=== PATIENT | female | born 1960 | race American Indian/Alaskan Native ===

== ENCOUNTER 2016-12-12 17:41 | Emergency (ER) | payer SELFPAY ==
--- NOTE | 2016-12-12 18:50 | Emergency Department Report ---
HPI - General Chief Complaint: Chest Pain Time Seen by Provider: 12/12/16 18:24 - HPI HPI: Is a 56-year-old Afro-[place] female presents to the emergency department, dropped off by a friend, with multiple complaints. Patient says that starting yesterday she began having severe chest pain with shortness of breath. It worsened with laying flat. It went away on its own but came back last night and felt like a "boot in the chest." At this point her fingers went numb and also contracted into her palm. The pain continued in the chest through this morning but has since improved. She complains of a posterior headache with some radiation down towards the back. She also complains of a pain in the left lower quadrant of the abdomen and mostly happens when she is coughing. Her cough is a mixed dry and productive cough. She is a tobacco smoker. She denies any past medical history. She does not have a primary care doctor. She has not taken anything for her symptoms prior to presentation. ED Past Medical Hx - Past Medical History Previous Medical History?: No - Surgical History Past Surgical History?: Yes Additional Surgical History: tubal ligation, Hysterectomy - Social History Smoking Status: Current Every Day Smoker Substance Use Type: Alcohol - Medications Home Medications: Home Medications Medication Instructions Recorded Confirmed Last Taken Type Dm/PE/Acetaminophen/Doxylamine 1 cap PO QDAY 12/12/16 12/12/16 12/10/16 History [[place] Plus Day-Night Cp] Naproxen Sodium [Aleve TAB] 220 mg PO QDAY PRN 12/12/16 12/12/16 12/11/16 History traMADol [Ultram] 50 mg PO Q6HR PRN #8 tablet 12/12/16 Unknown Rx ED Review of Systems ROS: Stated complaint: CHEST PAIN Other details as noted in HPI Comment: All other systems reviewed and negative Constitutional: denies: chills, fever Eyes: denies: eye pain, eye discharge, vision change ENT: denies: ear pain, throat pain Respiratory: denies: cough, wheezing Cardiovascular: chest pain. denies: palpitations Gastrointestinal: abdominal pain. denies: vomiting Genitourinary: denies: urgency, dysuria, discharge Musculoskeletal: denies: back pain, joint swelling, arthralgia Skin: denies: rash, lesions Neurological: headache. denies: weakness Physical Exam - Physical Exam Vital Signs: Vital Signs 12/12/16 17:55 Temperature 98.1 F Pulse Rate 80 Respiratory 22 Rate Blood Pressure 132/90 O2 Sat by Pulse 97 Oximetry Physical Exam: GENERAL: The patient is well-developed well-nourished. HEENT: Normocephalic. Atraumatic. Extraocular motions are intact. Patient has moist mucous membranes. Pupils equal reactive to light bilaterally. NECK: Supple. Trachea is midline. CHEST/LUNGS: Clear to auscultation. There is no respiratory distress noted. HEART/CARDIOVASCULAR: Regular. There is no tachycardia. There is no gallop rub or murmur. ABDOMEN: Abdomen is soft. There is mild left lower quadrant tenderness to palpation. The patient has pain there with coughing or intra-abdominal pressure. No guarding rebound tenderness. Patient has normal bowel sounds. There is no abdominal distention. SKIN: Skin is warm and dry. NEURO: The patient is awake, alert, and oriented. The patient is cooperative. The patient has no focal neurologic deficits. The patient has normal speech. Cranial nerves II through XII grossly intact. MUSCULOSKELETAL: There is no tenderness or deformity. There is no limitation range of motion. There is no evidence of acute injury. ED Course Vital Signs 12/12/16 17:55 Temperature 98.1 F Pulse Rate 80 Respiratory 22 Rate Blood Pressure 132/90 O2 Sat by Pulse 97 Oximetry ED Medical Decision Making - Lab Data Result diagrams: 12/12/16 18:25 12/12/16 18:25 - EKG Data -: EKG Interpreted by Me EKG shows normal: sinus rhythm, axis, intervals, QRS complexes (Q waves to the septal leads), ST-T waves Rate: normal - EKG Data When compared to previous EKG there are: previous EKG unavailable Interpretation: other (Q waves to the septal leads) - Radiology Data Radiology results: report reviewed, image reviewed interpreted by me: Chest x-ray did not show any acute process. Heart is normal shape and size. No effusions. No pneumothorax. No signs of pneumonia seen. Abdominal x-ray shows nonspecific nonobstructive bowel gas. CT of the head does not show any acute process including no hemorrhage, mass, shift, diffuse edema or skull fracture. - Medical Decision Making 56-year-old female presents the emergency department with a couple different complaints. She has a posterior headache that she describes as a pulling sensation going down the neck and shoulders and appears consistent with a tension headache. However the patient had a CT of the head without contrast that did not show any bleed, shift, mass or any acute process. The patient complained of some intermittent chest pains but does not appear to have any of the chest pain by the time I'm seeing her in the emergency department. Her EKG shows Q waves in septal leads but there is no sign of ST elevation AK, ischemia or dysrhythmia that is acute. Chest x-ray does not show any acute process. Her labs are unremarkable including negative troponins 2 and a negative d- dimer. She has some lower quadrant left-sided mild tenderness to palpation but she also has pain there with coughing or intra-abdominal pressure. There is no palpable hernia. She has normal bowel sounds. Abdominal x-ray does not show any acute process. The patient was reevaluated multiple times for multiple hours and says she is feeling improved. She has no further chest discomfort. Her headache is always completely resolved, she still has some occasional abdominal pain that worsens with coughing. I offered a CT of the abdomen and pelvis to get a better look into her abdominal discomfort but the patient says she is feeling improved and does not want to wait any further in the emergency department. She will go home, follow up with a primary care doctor and return to the emergency department with any worsening of her symptoms. Vital signs stable throughout ED course. - Differential Diagnosis AK, PE, tension headache, migraine, colitis, diverticulitis Critical Care Time: No Critical care attestation.: If time is entered above; I have spent that time in minutes in the direct care of this critically ill patient, excluding procedure time. ED Disposition Clinical Impression: Headache Qualifiers: Headache type: tension-type Headache chronicity pattern: acute headache Intractability: not intractable Qualified Code(s): G44.209 - Tension-type headache, unspecified, not intractable Abdominal pain Qualifiers: Abdominal location: left lower quadrant Qualified Code(s): R10.32 - Left lower quadrant pain Chest pain Qualifiers: Chest pain type: unspecified Qualified Code(s): R07.9 - Chest pain, unspecified Disposition: - TO HOME OR SELFCARE Is pt being admited?: No Condition: Stable Instructions: Chest Pain (ED), Acute Headache (ED), Abdominal Pain (ED) Additional Instructions: Please follow-up with a primary care physician in the next few days. I've given your referral for a local ground crew supervisor, Dr. Lemons, follow-up regarding your previous chest pain and so you can have an outpatient stress test. Return to the emergency department with any return of her chest pain, worsening of her symptoms, or any acute distress. Prescriptions: traMADol [Ultram] 50 mg PO Q6HR PRN #8 tablet PRN Reason: Pain Referrals: ALEKSANDR BENEDICT MD [Staff Physician] - 3-5 Days ROD LEMONS MD [Staff Physician] - 3-5 Days [facility] [Outside] - 3-5 Days Time of Disposition: 22:55
[2016-12-12 18:54] LABS: Hematocrit 39.9 % (30.3-42.9); Hemoglobin 13.3 gm/dl (10.1-14.3); Mean Corpuscular HGB Conc 33 % (30-34); Mean Corpuscular Hemoglobin 27 pg (28-32); Mean Corpuscular Volume 82 fl (79-97); Platelet Count 199 K/mm3 (140-440); Red Blood Count 4.88 M/mm3 (3.65-5.03); Red Cell Distribution Width 13.4 % (13.2-15.2); White Blood Count 3.2 K/mm3 (4.5-11.0)
[2016-12-12 19:23] LABS: Anion Gap 20 mmol/L; BUN/Creatinine Ratio 15.71; Blood Urea Nitrogen 11 mg/dL (7-17); Calcium 10.1 mg/dL (8.4-10.2); Carbon Dioxide 24 mmol/L (22-30); Chloride 103.9 mmol/L (98-107); Glucose 100 mg/dL (65-100); Potassium 4.1 mmol/L (3.6-5.0); Sodium 144 mmol/L (137-145)
[2016-12-12 19:32] LABS: Alanine Aminotransferase 17 units/L (7-56); Albumin 3.9 g/dL (3.9-5); Albumin/Globulin Ratio 1.1 %; Alkaline Phosphatase 118 units/L (35-129); Lipase 50 units/L (13-60); Total Protein 7.6 g/dL (6.3-8.2)
[2016-12-12 19:45] LABS: Bilirubin,Direct < 0.2 mg/dL (0-0.2); Bilirubin,Indirect 0.1 mg/dL
[2016-12-12 19:49] LABS: Blastocytes % (Manual) 0 %; Ovalocytes Few; Polychromasia Few
[2016-12-12 19:50] LABS: Diff Status Complete; Platelet Estimate Consistent w Auto
--- NOTE | 2016-12-12 19:53 | Admit Criteria Form ---
Admission Criteria Documentation: CARDIOLOGY GRG Clinical Indications for Admission to Inpatient Care ( Place 'X' for any and all applicable criteria): Hospital admission is needed for appropriate care of the patient because of ANY ONE of the following (1): [ ] I. Hemodynamic instability as indicated by ALL of the following (1)(2)(3) (4)(5) [ ]a) Vital signs or other findings not as expected for chronic patient condition or baseline [ ]b) Instability indicated by ANY ONE of the following: [ ]i) Hypotension [ ]ii) Symptomatic Tachycardia unresponsive to treatment ( e.g., analgesia, fluids, sedation as indicated) [ ]iii) Inadequate perfusion indicated by ANY ONE of the following: [ ] 1) Lactic acidosis (> 2 mmol/L) [ ] 2) New abnormal capillary refill (> 3 seconds) [ ] 3) Reduced urine output [ ] 4) New altered mental status [ ]iv) Orthostatic vital sign changes unresponsive to treatment (e.g., fluids) [ ]v) IV inotropic or vasopressor medication required to maintain adequate blood pressure or perfusion [ ] II. Severe heart failure as indicated by ANY ONE of the following(17)(18) [ ]a) Respiratory distress [ ]b) Hypotension [ ]c) Anasarca (refractory to outpatient therapy) [ ]d) Cardiac arrhythmias of immediate concern [ ]e) Myocardial ischemia [ ] III. Cardiac arrhythmias or findings of immediate concern indicated by ANY ONE of the following (19)(20): [ ] a) Heart rhythms that are inherently dangerous or unstable indicated by ANY ONE of the following (21)(22)(23): [ ] i) Resuscitated ventricular fibrillation or cardiac arrest [ ] ii) Ventricular escape rhythm [ ] iii) Sustained ventricular tachycardia (30 seconds or more of ventricular rhythm at greater than 100 beats per minute) [ ] iv) Nonsustained ventricular tachycardia and ANY ONE of the following: [ ] 1) Suspected cardiac ischemia as cause or consequence of ventricular tachycardia [ ] 2) In setting of acute myocarditis [ ] b) Unstable cardiac conduction defects indicated by ANY ONE of the following(23)(24)(25) [ ] i) Type II second-degree atrioventricular block [ ]ii) Third-degree atrioventricular block [ ]iii) New-onset left bundle branch block with suspected myocardial ischemia [ ]c) Any heart rhythm and ANY ONE of the following (21)(22)(26)(27) (28) [ ] i) Continuous long-term ECG monitoring needed (e.g., initiation of drug requiring monitoring for more than 24 hours) [ ] ii) Patient has automatic implanted cardioverter defibrillator that is repeatedly firing, malfunctioning, or in need of immediate adjustment of settings beyond the scope of ambulatory or observation care [ ]d) Heart rhythms of concern due to ANY ONE of the following: [ ] i) Hypotension [ ] ii) Respiratory distress [ ] iii) Association with other significant symptoms (e.g., bradycardia with syncope or ongoing dizziness, supraventricular tachycardia with chest pain (14)(15)(17) [ ] IV. Monitoring for cardiac contusion beyond the scope of observation care needed [A](30)(31)(32) [ ] V. Surgical or device complication (e.g., valve replacement complication , pacemaker dysfunction) (35)(41)(44)(45)(46) [ ] . Inpatient palliative care needed. [B](49) Also use Inpatient Palliative Care Criteria [ ] VII. Nonbacterial thrombotic (marantic) endocarditis (36)(43)(47)(48) [x] VIII. Cardiology condition, symptom, or finding for which emergency and observation care has failed or are not considered appropriate. [ ] IX. Acute valvular disease requiring inpatient as indicated by ANY ONE of the following (41) [ ]a) Acute valvular regurgitation (42) [ ]b) Noninfectious valvulitis (43) [ ]c) Obstructive valve thrombosis [ ]d) Paravalvular leak [ ]e) Other significant valvular disorder remaining after emergency or observation level of care (as appropriate) [ ]X. Pericardial disease requiring inpatient treatment as indicated by ANY ONE of the following (33)(34)(35)(36)(37) [ ]a) Suspected tamponade (38)(39)(40) [ ]b) Hemopericardium [ ]c) Other significant pericardial disorder remaining after emergency or observation level of care (as appropriate) [ ] XI. Cardiac ischemia beyond scope of emergency and observation care. [ ] XII. Hypertension requiring inpatient treatment as indicated by ANY ONE of the following (6)(7)(8) [ ]a) SBP greater than 220 mm Hg or DBP greater than 120 mmHg despite treatment [ ]b) SBP greater than 140 mm Hg or DBP greater than 100 mm Hg with evidence of acute end organ damage as indicated by ANY ONE of the following [ ] i) Altered mental status [ ] ii) Acute renal failure as indicated by new onset of ANY ONE of the following (9)(10)(11)(12)(13) [ ]1) 3-fold rise in serum creatinine from baseline [ ]2) Serum creatinine greater than 4 mg/dL ( 354 micromoles/L) with acute rise greater than 0.5 mg/dL (44.2 micromoles/L) [ ]3) Reduction of more than 75% in estimated glomerular filtration rate from baseline [ ]4) Estimated glomerular filtration rate less than 35 mL/min/1.73m2 (0.59 mL/sec/1.73m2) in child up to 18 years of age [ ]5) Cessation of urine output indicated by ALL of the following [ ]A. Adequate volume status [ ]B. Inadequate urine output as indicated by ANY ONE of the following [ ]a. Urine output less than 0.3 mL/kg/hr for 24 hours [ ]b. Anuria (urine output less than 0.1 mL/kg/hr) for 12 hours [ ] iii) Aortic dissection [ ] iv) Myocardial Ischemia [ ] v) Left ventricular heart failure [ ]vi) Retinal Hemorrhage [ ]vii) Other significant finding [ ]c) Hypertension in child requiring inpatient treatment as indicated by ALL of the following(14)(15)(16) [ ] i) Outpatient treatment not effective, not available, or not appropriate [ ]ii) SBP or DBP greater than 95th percentile for age [ ]iii) Evidence of acute end organ damage as indicated by ANY ONE of the following [ ]1) Altered mental status [ ]2) Acute renal failure as indicated by new onset of ANY ONE of the following(9)(10)(11)(12)(13) [ ]A. 3-fold rise in serum creatinine from baseline [ ]B. Serum creatinine greater than 4 mg/dL (354 micromoles/L) with acute rise greater than 0.5 mg/dL (44.2 micromoles/L) [ ]C. Reduction of more than 75% in estimated glomerular filtration rate from baseline [ ]D. Estimated glomerular filtration rate less than 35 mL/min/1.73m2 (0.59 mL/sec/1.73m2) in child up to 18 years of age [ ]E. Cessation of urine output indicated by ALL of the following [ ]a. Adequate volume status [ ]b. Inadequate urine output as indicated by ANY ONE of the following [ ]i) Urine output less than 0.3 mL/kg/hr for 24 hours [ ]ii) Anuria ( urine output less than 0.1 mL/kg/hr) for 12 hours [ ]3) Severe headache [ ]4) Visual disturbance [ ]5) Retinal hemorrhage [ ]6) Other significant finding [ ]XIII. Complications of transplanted heart indicated by ANY ONE of the following(61): [ ]a) Acute graft rejection requiring inpatient management (eg, intravenous immunosuppression)(62)(63) [ ]b) Acute graft heart failure indicated by ANY ONE of the following(64): [ ]i) Hemodynamic instability [ ]ii) Cardiac arrhythmias of immediate concern [ ]iii) Pulmonary edema that is very severe (eg, mechanical ventilation needed, imminent or likely, need for 100% oxygen to keep oxygen saturation above 90%) [ ]iv) Pulmonary edema that is persistent as indicated by ALL of the following: [ ]1) New need for oxygen therapy to keep oxygen saturation above 90% (or increased FiO2 need from baseline) [ ]2) Has not improved sufficiently with emergency department or observation care IV diuretics or other heart failure treatments[E] [ ]v) Altered mental status that is severe or persistent [ ]vi) Increased creatinine (new on laboratory test) with reduction of more than 50% in estimated glomerular filtration rate from baseline [ ]vii) Progressively (ongoing) rising creatinine (known from past laboratory test) with reduction of more than 25% in estimated glomerular filtration rate from baseline [ ]viii) Acute renal failure [ ]ix) Acute peripheral ischemia (eg, examination shows pulseless, cool, mottled, or cyanotic extremity) [ ]x) Pulmonary artery catheter monitoring needed [ ]xi) Other sign or symptom of heart failure requiring inpatient treatment (ie, too severe or not responsive to outpatient and observation care treatment) [ ]c) Infection requiring inpatient management (eg, Hemodynamic instability, need for intravenous antimicrobial treatment)(66)(67)(68)(69)(70) [ ]d) Cardiac allograft vasculopathy requiring inpatient management ( eg evidence of cardiac ischemia)(71) [ ]e) Other complication of transplanted heart (eg, stroke, severe pulmonary hypertension, severe valvular dysfunction) requiring inpatient management(72) The original [facility] [employer] content created by [facility] [employer] has been revised. The portions of the content which have been revised are identified through the use of italic text or in bold, and [facility] has neither reviewed nor approved the modified material. All other unmodified content is copyright [facility] [employer]. Please see references footnoted in the original [facility] [employer] edition 2016
--- NOTE | 2016-12-12 21:42 | Cat Scan Report ---
FINAL REPORT EXAM: CT HEAD/BRAIN WO CON HISTORY: Headache TECHNIQUE: CT head without contrast PRIORS: None. FINDINGS: No acute intra-axial or extra-axial hemorrhage is identified. There is no evidence of midline shift or mass effect. The ventricles and sulci are within normal limits. Sifuentes-white matter differentiation is intact. No acute parenchymal abnormalities seen. Bony calvarium is grossly intact. There is fluid level present within the right maxillary sinus. There is increased density seen within multiple ethmoid air cells. IMPRESSION: Sinusitis which appears acute No acute intracranial findings
[2016-12-12 23:24] VITALS: BP 143/82
--- NOTE | 2016-12-13 08:19 | XRay Report ---
ABDOMEN TWO VIEWS: 12/12/16 18:41:00 CLINICAL: Abdominal pain. COMPARISON:None. FINDINGS: Supine upright views demonstrate a normal bowel gas pattern. Moderate stool throughout the colon. No distended bowel and no air-fluid levels. The right upper quadrant calcification overlies the kidney and may be a renal calculus or gallbladder. The bones and soft tissues are normal. IMPRESSION: Right upper quadrant calcification and possible urinary or gallbladder calculus.
--- NOTE | 2016-12-13 08:21 | XRay Report ---
CHEST TWO VIEWS: 12/12/16 17:41:00 CLINICAL: Chest pain and shortness of breath. COMPARISON: none FINDINGS: Normal heart and pulmonary vasculature. The lungs are normally expanded and clear. The bones and soft tissues are normal. IMPRESSION: Normal chest.
== END 2016-12-12 23:15 | disposition home or self-care (01) ==
LOC: ED 17:41
DX: R51 Headache (principal); R07.9 Chest pain, unspecified; R10.32 Left lower quadrant pain; F17.210 Nicotine dependence, cigarettes, uncomplicated; Z98.51 Tubal ligation status; Z90.49 Acquired absence of other specified parts of digestive tract
CPT/HCPCS: 36415; 70450; 71020; 74020; 80048; 80074; 83690; 84484; 85007; 85025; 85379; 93005; 93010; 99285

== ENCOUNTER 2017-02-25 10:12 | Emergency (ER) | payer SELFPAY ==
[2017-02-25 10:51] VITALS: BP 142/93
--- NOTE | 2017-02-25 10:52 | Emergency Department Report ---
ED Extremity Problem HPI - General Chief complaint: Skin Rash Stated complaint: LT LEG PAIN/RASH/ Time Seen by Provider: 02/25/17 10:47 Source: patient Mode of arrival: Ambulatory Limitations: No Limitations - History of Present Illness Initial comments: PT states she noticed a rash to her L taylor yesterday. PT states it feel like her leg is burning. PT states she had chickenpox as a child. MD Complaint: extremity pain Onset/Timin -: Gradual, days(s) Location: left, lower extremity History of Same: No Severity scale (0 -10): 10 Quality: burning Consistency: constant Improves with: nothing Worsens with: nothing Associated Symptoms: rash. denies: fever - Related Data Home Medications Medication Instructions Recorded Confirmed Last Taken Dm/PE/Acetaminophen/Doxylamine 1 cap PO QDAY 12/12/16 12/12/16 12/10/16 [[place] Plus Day-Night Cp] Naproxen Sodium [Aleve TAB] 220 mg PO QDAY PRN 12/12/16 12/12/16 12/11/16 Previous Rx's Medication Instructions Recorded Last Taken Type Acyclovir [Zovirax Cap] 800 mg PO 5XD 7 Days 02/25/17 Unknown Rx HYDROcodone/APAP 5-325 [[place] 1 each PO Q6HR PRN #14 tablet 02/25/17 Unknown Rx 5/325] Ibuprofen [Motrin] 600 mg PO Q8H PRN #15 tablet 02/25/17 Unknown Rx Allergies Allergy/AdvReac Type Severity Reaction Status Date / Time No Known Allergies Allergy Verified 06/07/14 09:51 ED Review of Systems ROS: Stated complaint: LT LEG PAIN/RASH/ Other details as noted in HPI Comment: All other systems reviewed and negative Constitutional: chills, fever (subjective ) Cardiovascular: denies: chest pain Gastrointestinal: denies: abdominal pain Musculoskeletal: back pain (left lower back ) Skin: rash, change in color Neurological: denies: headache, weakness ED Past Medical Hx - Surgical History Past Surgical History?: Yes Additional Surgical History: tubal ligation, Hysterectomy - Social History Smoking Status: Current Every Day Smoker Substance Use Type: Alcohol - Medications Home Medications: Home Medications Medication Instructions Recorded Confirmed Last Taken Type Dm/PE/Acetaminophen/Doxylamine 1 cap PO QDAY 12/12/16 12/12/16 12/10/16 History [[place] Plus Day-Night Cp] Naproxen Sodium [Aleve TAB] 220 mg PO QDAY PRN 12/12/16 12/12/16 12/11/16 History Acyclovir [Zovirax Cap] 800 mg PO 5XD 7 Days 02/25/17 Unknown Rx HYDROcodone/APAP 5-325 [[place] 1 each PO Q6HR PRN #14 tablet 02/25/17 Unknown Rx 5/325] Ibuprofen [Motrin] 600 mg PO Q8H PRN #15 tablet 02/25/17 Unknown Rx ED Physical Exam - General Limitations: No Limitations General appearance: alert, in no apparent distress - Head Head exam: Present: atraumatic, normocephalic, normal inspection - Eye Eye exam: Present: normal appearance, PERRL. Absent: conjunctival injection - ENT ENT exam: Present: normal exam, mucous membranes moist, normal external ear exam - Neck Neck exam: Present: normal inspection, full ROM. Absent: lymphadenopathy - Respiratory Respiratory exam: Present: normal lung sounds bilaterally. Absent: respiratory distress, wheezes, chest wall tenderness - Cardiovascular Cardiovascular Exam: Present: regular rate, normal rhythm, normal heart sounds - GI/Abdominal GI/Abdominal exam: Present: soft, other (no rash ). Absent: tenderness - Extremities Exam Extremities exam: Present: full ROM. Absent: normal inspection (vesicular rash to LLE ) - Back Exam Back exam: Present: normal inspection, full ROM. Absent: tenderness, CVA tenderness (R), CVA tenderness (L), muscle spasm, paraspinal tenderness, vertebral tenderness, rash noted - Neurological Exam Neurological exam: Present: alert, oriented X3, normal gait - Psychiatric Psychiatric exam: Present: normal affect, normal mood - Skin Skin exam: Present: warm, dry, intact, rash, vesicles ED Course Vital Signs 02/25/17 10:44 Temperature 98.1 F Pulse Rate 65 Respiratory 16 Rate Blood Pressure 142/93 O2 Sat by Pulse 97 Oximetry - Reevaluation(s) Reevaluation #1: 02/25/17 10:54 PT aware of dx and plan of care. PT aware that she is contagious. PT has no questions at this time. - Pulse Oximetry Interpretation Digit-Finger Initial Pulse Oximetry Readin Actions Taken: none ED Medical Decision Making - Differential Diagnosis shingles Critical Care Time: No Critical care attestation.: If time is entered above; I have spent that time in minutes in the direct care of this critically ill patient, excluding procedure time. ED Disposition Clinical Impression: Shingles Qualifiers: Herpes zoster complications: without complications Qualified Code(s): B02.9 - Zoster without complications Disposition: TO HOME OR SELFCARE Is pt being admited?: No Does the pt Need Aspirin: No Condition: Stable Instructions: Herpes Zoster (ED) Additional Instructions: Follow up with PCP in 3-5 days - Have your bp rechecked at follow up No driving or alcohol after taking [place] for your pain Avoid babies under 1 year old, people who have not had chicken pox or the vaccination or those who are sick Prescriptions: Acyclovir [Zovirax Cap] 800 mg PO 5XD 7 Days HYDROcodone/APAP 5-325 [[place] 5/325] 1 each PO Q6HR PRN #14 tablet PRN Reason: Pain Ibuprofen [Motrin] 600 mg PO Q8H PRN #15 tablet PRN Reason: Pain Referrals: RAY PELLETIER MD [Staff Physician] - 3-5 Days [facility] [Outside] - 3-5 Days Time of Disposition: 10:56
== END 2017-02-25 11:23 | disposition home or self-care (01) ==
LOC: ED 10:12
DX: B02.9 Zoster without complications (principal); F17.200 Nicotine dependence, unspecified, uncomplicated
CPT/HCPCS: 99282

== ENCOUNTER 2017-09-07 09:51 | Emergency (ER) | payer SELFPAY ==
[2017-09-07] MEDS ORDERED: ASPIRIN PO ONE (10:04)
[2017-09-07 10:23] LABS: Basophils % (Auto) 0.6 % (0.0-1.8); Eosinophils # (Auto) 0.3 K/mm3 (0.0-0.4); Hematocrit 41.1 % (30.3-42.9); Hemoglobin 13.4 gm/dl (10.1-14.3); Lymphocytes # (Auto) 1.5 K/mm3 (1.2-5.4); Lymphocytes % (Auto) 36.2 % (13.4-35.0); Mean Corpuscular HGB Conc 33 % (30-34); Mean Corpuscular Hemoglobin 27 pg (28-32); Mean Corpuscular Volume 82 fl (79-97); Monocytes # (Auto) 0.4 K/mm3 (0.0-0.8); Monocytes % (Auto) 8.8 % (0.0-7.3); Platelet Count 205 K/mm3 (140-440); Red Blood Count 5.04 M/mm3 (3.65-5.03); Red Cell Distribution Width 13.1 % (13.2-15.2)
[2017-09-07 11:32] LABS: BUN/Creatinine Ratio 20; Blood Urea Nitrogen 12 mg/dL (7-17); Calcium 10.1 mg/dL (8.4-10.2); Hemolysis Index 4
--- NOTE | 2017-09-07 12:28 | Emergency Department Report ---
Chief Complaint: Chest Pain Stated Complaint: CHEST PAIN - HPI History of Present Illness: 57-year-old female presents with chest pain neck pain for several days. She has had 2 weeks of shortness of breath. History of tobacco abuse. Mother has history of CHF. Cardiac evaluation ordered. - Exam Vital Signs: Vital Signs 09/07/17 09:58 Temperature 97.6 F Pulse Rate 78 Respiratory 20 Rate Blood Pressure 158/97 O2 Sat by Pulse 97 Oximetry MSE screening note: Focused history and physical exam performed. Due to findings the following was ordered: ED Medical Decision Making - Lab Data Result diagrams: 09/07/17 10:11 09/07/17 10:11 ED Disposition for MSE Condition: Stable Referrals: PRIMARY CARE, [Primary Care Provider] - 3-5 Days
[2017-09-07] MEDS ORDERED: ASPIRIN ONE (12:35)
[2017-09-07] MEDS ORDERED: ATROVENT IH ONE (14:18)
[2017-09-07] MEDS ORDERED: PROVENTIL IH ONE ×2 (14:18→17:08)
--- NOTE | 2017-09-07 16:52 | XRay Report ---
FINAL REPORT PROCEDURE: Chest. TECHNIQUE: PA and lateral views. HISTORY: Chest pain with dyspnea. COMPARISON: No prior studies are available for comparison. FINDINGS: Heart and mediastinum appear normal. The lungs are clear and well expanded. There are no pleural effusions. The soft tissues are unremarkable. There is a moderate thoracolumbar scoliosis. IMPRESSION: No evidence of acute disease.
--- NOTE | 2017-09-07 17:28 | Emergency Department Report ---
ED Chest Pain HPI - General Chief Complaint: Chest Pain Stated Complaint: CHEST PAIN Time Seen by Provider: 09/07/17 14:08 Source: patient Mode of arrival: Ambulatory Limitations: No Limitations - History of Present Illness Initial Comments: Patient is a 57-year-old female who is presenting with chest pressure is been going on off and on for approximately 2 weeks. Patient states that is worsened over the last 3 days. Patient states that as a heavy pressure sensation and tightness in the chest that she is experiencing. Patient states this happens at rest and with exertion. Patient is complaining of shortness of breath orthopnea as well. Patient also states that she has a cough which is nonproductive. This is been present for approximately 2 weeks as well. Patient denies any fevers chills nausea vomiting diarrhea at this time. Patient does have a history of hypertension and possible hyper cholesterolemia. Patient is a smoker but has not smoked in the last 2 days. - Related Data Home Medications Medication Instructions Recorded Confirmed Last Taken Dm/PE/Acetaminophen/Doxylamine 1 cap PO QDAY 12/12/16 12/12/16 12/10/16 [[place] Plus Day-Night Cp] Naproxen Sodium [Aleve TAB] 220 mg PO QDAY PRN 12/12/16 12/12/16 12/11/16 Previous Rx's Medication Instructions Recorded Last Taken Type Acyclovir [Zovirax Cap] 800 mg PO 5XD 7 Days cap 02/25/17 Unknown Rx HYDROcodone/APAP 5-325 [[place] 1 each PO Q6HR PRN #14 tablet 02/25/17 Unknown Rx 5/325] Ibuprofen [Motrin] 600 mg PO Q8H PRN #15 tablet 02/25/17 Unknown Rx ALBUTEROL Inhaler [ProAir HFA 2 puff IH Q4HR PRN #1 inhalation 09/07/17 Unknown Rx Inhaler] Amoxicillin 500 mg PO QID #28 capsule 09/07/17 Unknown Rx predniSONE [Deltasone] 20 mg PO QDAY #5 tab 09/07/17 Unknown Rx Allergies Allergy/AdvReac Type Severity Reaction Status Date / Time No Known Allergies Allergy Verified 06/07/14 09:51 Heart Score - HEART Score History: Slightly suspicious EKG: Normal Age: 45-65 Risk factors: 1-2 risk factors Troponin: < normal limit HEART Score: 2 ED Review of Systems ROS: Stated complaint: CHEST PAIN Other details as noted in HPI Comment: All other systems reviewed and negative ED Past Medical Hx - Past Medical History Hx Arthritis: Yes - Surgical History Additional Surgical History: tubal ligation, Hysterectomy - Social History Smoking Status: Current Every Day Smoker - Medications Home Medications: Home Medications Medication Instructions Recorded Confirmed Last Taken Type Dm/PE/Acetaminophen/Doxylamine 1 cap PO QDAY 12/12/16 12/12/16 12/10/16 History [[place] Plus Day-Night Cp] Naproxen Sodium [Aleve TAB] 220 mg PO QDAY PRN 12/12/16 12/12/16 12/11/16 History Acyclovir [Zovirax Cap] 800 mg PO 5XD 7 Days cap 02/25/17 Unknown Rx HYDROcodone/APAP 5-325 [[place] 1 each PO Q6HR PRN #14 tablet 02/25/17 Unknown Rx 5/325] Ibuprofen [Motrin] 600 mg PO Q8H PRN #15 tablet 02/25/17 Unknown Rx ALBUTEROL Inhaler [ProAir HFA 2 puff IH Q4HR PRN #1 inhalation 09/07/17 Unknown Rx Inhaler] Amoxicillin 500 mg PO QID #28 capsule 09/07/17 Unknown Rx predniSONE [Deltasone] 20 mg PO QDAY #5 tab 09/07/17 Unknown Rx ED Physical Exam - General Limitations: No Limitations General appearance: alert, in no apparent distress - Head Head exam: Present: atraumatic, normocephalic - Eye Eye exam: Present: normal appearance - ENT ENT exam: Present: mucous membranes moist - Neck Neck exam: Present: normal inspection - Respiratory Respiratory exam: Present: wheezes. Absent: respiratory distress, rales, rhonchi, stridor - Cardiovascular Cardiovascular Exam: Present: regular rate, normal rhythm. Absent: systolic murmur, diastolic murmur, rubs, gallop - GI/Abdominal GI/Abdominal exam: Present: soft, normal bowel sounds. Absent: distended, tenderness, guarding, rebound - Extremities Exam Extremities exam: Present: normal inspection - Back Exam Back exam: Present: normal inspection - Neurological Exam Neurological exam: Present: alert, oriented X3 - Psychiatric Psychiatric exam: Present: normal affect, normal mood - Skin Skin exam: Present: warm, dry, intact, normal color. Absent: rash ED Course Vital Signs 09/07/17 09/07/17 09/07/17 09:58 14:06 14:42 Temperature 97.6 F Pulse Rate 78 79 Pulse Rate [ 62 Anterior Throughout] Respiratory 20 19 Rate Respiratory 23 Rate [Anterior Throughout] Blood Pressure 158/97 O2 Sat by Pulse 97 Oximetry 09/07/17 17:55 Temperature Pulse Rate Pulse Rate [ 69 Anterior Throughout] Respiratory Rate Respiratory 15 Rate [Anterior Throughout] Blood Pressure O2 Sat by Pulse Oximetry - Reevaluation(s) Reevaluation #1: 09/07/17 18:40 After the patient's second breathing treatment patient is feeling better. Patient is 100% on room air. Patient is Dr. Johnson since. The patient does still have some mild rhonchi and a wheeze that does clear after coughing. The patient still has significant mucus plugging however she is stable. Patient would like to go home at this time. The patient will be started on albuterol prednisone and amoxicillin be discharged home. ED Medical Decision Making - Lab Data Result diagrams: 09/07/17 10:11 09/07/17 10:11 - EKG Data -: EKG Interpreted by Me - EKG Data Interpretation: other (EKG shows a sinus rhythm rate of 65 normal axis normal intervals and no ST segment elevations or depressions time of interpretation is 1010. Repeat EKG at 1420 shows no interval change.) - Radiology Data Radiology results: report reviewed No acute process - Medical Decision Making Patient is a 57-year-old black female presenting with cough, congestion and chest pressure. Patient does have significant wheezing diffusely. Patient was given a 10 mg of albuterol and 1 mg Atrovent breathing treatment on arrival. Patient still wheezing after this treatment therefore she was given another 5 mg of albuterol. Critical Care Time: Yes Critical care time in (mins) excluding proc time.: 30 Critical care attestation.: If time is entered above; I have spent that time in minutes in the direct care of this critically ill patient, excluding procedure time. ED Disposition Clinical Impression: Bronchospasm Acute bronchitis Qualifiers: Bronchitis organism: unspecified organism Qualified Code(s): J20.9 - Acute bronchitis, unspecified Disposition: DC-01 TO HOME OR SELFCARE Is pt being admited?: No Does the pt Need Aspirin: No Condition: Fair Instructions: Acute Bronchitis (ED) Prescriptions: ALBUTEROL Inhaler [ProAir HFA Inhaler] 2 puff IH Q4HR PRN #1 inhalation PRN Reason: Shortness Of Breath Amoxicillin 500 mg PO QID #28 capsule predniSONE [Deltasone] 20 mg PO QDAY #5 tab Referrals: BECKIE SIMS MD [Staff Physician] - 3-5 Days Time of Disposition: 18:44
[2017-09-07 18:58] VITALS: BP 151/87
== END 2017-09-07 19:00 | disposition home or self-care (01) ==
LOC: ED 09:51
DX: J20.9 Acute bronchitis, unspecified (principal); F17.200 Nicotine dependence, unspecified, uncomplicated
CPT/HCPCS: 36415; 71046; 80048; 83880; 84484; 85025; 93005; 93010; 94640; 94644; 96374; 99291; J2930

== ENCOUNTER 2018-12-03 06:59 | Emergency (ER) | payer SELFPAY ==
[2018-12-03 07:17] VITALS: BP 144/97
[2018-12-03] MEDS ORDERED: DECADRON IM ONE (08:12)
[2018-12-03] MEDS ORDERED: PEPCID PO ONE (08:12)
--- NOTE | 2018-12-03 08:12 | Emergency Department Report ---
HPI - General Chief Complaint: Allergic Reaction Time Seen by Provider: 12/03/18 08:04 - HPI HPI: Patient is a 58-year-old [place] female who is presenting with lip swelling. Patient states the only thing different with her diet is that she has some tra nsaminases last night. Patient states 30 minutes after eating this her lips began to tingle. Patient woke up this morning with swelling to the upper and lower lip. States she had some generalized itchiness as well throughout the night without rash. Patient denies any difficulty breathing nausea vomiting fevers or chills at this time. ED Past Medical Hx - Past Medical History Previous Medical History?: Yes Hx Arthritis: Yes - Surgical History Past Surgical History?: Yes Additional Surgical History: tubal ligation, Hysterectomy - Social History Smoking Status: Current Every Day Smoker Substance Use Type: Alcohol - Medications Home Medications: Home Medications Medication Instructions Recorded Confirmed Last Taken Type Dm/PE/Acetaminophen/Doxylamine 1 cap PO QDAY 12/12/16 12/12/16 12/10/16 History [[place] Plus Day-Night Cp] Naproxen Sodium [Aleve TAB] 220 mg PO QDAY PRN 12/12/16 12/12/16 12/11/16 History Acyclovir [Zovirax Cap] 800 mg PO 5XD 7 Days cap 02/25/17 Unknown Rx HYDROcodone/APAP 5-325 [[place] 1 each PO Q6HR PRN #14 tablet 02/25/17 Unknown Rx 5/325] Ibuprofen [Motrin] 600 mg PO Q8H PRN #15 tablet 02/25/17 Unknown Rx ALBUTEROL Inhaler (OR & NICU) 2 puff IH Q4HR PRN #1 inhalation 09/07/17 Unknown Rx [ProAir HFA Inhaler] Amoxicillin 500 mg PO QID #28 capsule 09/07/17 Unknown Rx predniSONE [Deltasone] 20 mg PO QDAY #5 tab 09/07/17 Unknown Rx Famotidine [Pepcid] 20 mg PO BID #20 tablet 12/03/18 Unknown Rx diphenhydrAMINE [Benadryl CAP] 25 mg PO Q8HR #10 capsule 12/03/18 Unknown Rx predniSONE [Deltasone] 20 mg PO QDAY #5 tab 12/03/18 Unknown Rx ED Review of Systems ROS: Stated complaint: SWELLING IN LIPS Other details as noted in HPI Physical Exam - Physical Exam Vital Signs: Vital Signs 12/03/18 12/03/18 12/03/18 07:02 07:16 07:19 Temperature 98.0 F 97.8 F 98.6 F Pulse Rate 76 70 73 Respiratory 16 16 16 Rate Blood Pressure 152/94 144/97 Blood Pressure 144/97 [Left] O2 Sat by Pulse 96 100 100 Oximetry General: Patient is alert and oriented 3 in no acute distress Physical Exam: Patient with some edema to the upper and lower lip which is mild. There is no pharyngeal swelling or erythema. Skin exam shows no hives present. Heart lung exam is within normal limits. ED Course Vital Signs 12/03/18 12/03/18 12/03/18 07:02 07:16 07:19 Temperature 98.0 F 97.8 F 98.6 F Pulse Rate 76 70 73 Respiratory 16 16 16 Rate Blood Pressure 152/94 144/97 Blood Pressure 144/97 [Left] O2 Sat by Pulse 96 100 100 Oximetry ED Medical Decision Making - Medical Decision Making Patient states she has had allergic reaction to crab legs before but not examined. Patient likely with seafood allergy that is developing. Patient given a Decadron shot Pepcid because she has driven Benadryl and held. Patient is to take Benadryl 3 times a day for the next several days. Critical care attestation.: If time is entered above; I have spent that time in minutes in the direct care of this critically ill patient, excluding procedure time. ED Disposition Clinical Impression: Acute allergic reaction Qualifiers: Encounter type: initial encounter Qualified Code(s): T78.40XA - Allergy, unspecified, initial encounter Disposition: - TO HOME OR SELFCARE Is pt being admited?: No Does the pt Need Aspirin: No Condition: Stable Instructions: Food Allergy (ED) Referrals: [facility] [Provider Group] - 3-5 Days Time of Disposition: 08:22
== END 2018-12-03 08:33 | disposition home or self-care (01) ==
LOC: ED 06:59
DX: T78.40XA Allergy, unspecified, initial encounter (principal); F17.200 Nicotine dependence, unspecified, uncomplicated; M19.90 Unspecified osteoarthritis, unspecified site; Y92.89 Other specified places as the place of occurrence of the external cause
CPT/HCPCS: 99282

== ENCOUNTER 2020-08-24 20:46 | Inpatient (IN) | payer OTHER ==
--- NOTE | 2020-08-24 21:07 | Emergency Department Report ---
Blank Doc - Documentation Documentation: 60-year-old female that presents with epigastric pain with nausea vomiting. Hypotensive in triage. 1- This initial assessment/diagnostic orders/clinical plan/ treatment(s) is/are subject to change based on pt's health status, clinical progression and re- assessment by fellow clinical providers in the ED. Further treatment and workup at subsequent clinical provers discretion. Patient/guardians urged not to elope from ED as their condition may be serious if not clinically assessed and managed. 2-labs 3-UA 4-EKG
[2020-08-24 21:22] LABS: Basophils % (Auto) 0.4 % (0.0-1.8); Eosinophils # (Auto) 0.1 K/mm3 (0.0-0.4); Eosinophils % (Auto) 1.3 % (0.0-4.3); Hematocrit 41.6 % (30.3-42.9); Hemoglobin 14.4 gm/dl (10.1-14.3); Lymphocytes # (Auto) 1.9 K/mm3 (1.2-5.4); Lymphocytes % (Auto) 27.8 % (13.4-35.0); Mean Corpuscular HGB Conc 35 % (30-34); Mean Corpuscular Volume 80 fl (79-97); Monocytes # (Auto) 0.3 K/mm3 (0.0-0.8); Monocytes % (Auto) 4.9 % (0.0-7.3); Platelet Count 275 K/mm3 (140-440); Red Blood Count 5.18 M/mm3 (3.65-5.03); Red Cell Distribution Width 13.3 % (13.2-15.2)
[2020-08-24] MEDS ORDERED: FAMOTIDINE 20 MG/2 ML INJ IV ONE (21:23)
[2020-08-24] MEDS ORDERED: SODIUM CHLORIDE 0.9% 1000 ML 1,000 ML IV ONE ×2 (21:23→22:53)
--- NOTE | 2020-08-24 21:26 | Emergency Department Report ---
HPI - General Chief Complaint: Abdominal Pain Time Seen by Provider: 08/24/20 21:06 - HPI HPI: This is a 60-year-old -[place] female presents to the emergency department via EMS from home with complaint of severe intermittent epigastric abdominal pain that started about 8 AM this morning. The patient thought it might be gas pains and attempted to treat herself with drinking warm water with some ezio mixed in, 2 different times, without much relief. This evening the patient felt like she needed to have a bowel movement and sat down on the toilet to attempt to "pass my bowels" but she was unsuccessful and the patient says she began feeling very dizzy as if she was going to pass out. Around this time the patient also complained of having a frontal headache. The abdominal pain, when it occurs, is sharp, 10 out of 10 in intensity, and lasts for about 20 seconds at a time. She denies any fever, dysuria, vaginal bleeding or discharge, back pain, chest pain or shortness of breath. She denies any past medical history. She does not follow with a primary care physician. She is a tobacco smoker. No recent travel or sick contacts at home. ED Past Medical Hx - Past Medical History Previous Medical History?: Yes Hx Arthritis: Yes - Surgical History Past Surgical History?: Yes Additional Surgical History: tubal ligation, Hysterectomy - Social History Smoking Status: Current Every Day Smoker Substance Use Type: None - Medications Home Medications: Home Medications Medication Instructions Recorded Confirmed Last Taken Type Dm/PE/Acetaminophen/Doxylamine 1 cap PO QDAY 12/12/16 12/12/16 12/10/16 History [[place] Plus Day-Night Cp] Naproxen Sodium [Aleve TAB] 220 mg PO QDAY PRN 12/12/16 12/12/16 12/11/16 History Acyclovir [Zovirax Cap] 800 mg PO 5XD 7 Days cap 02/25/17 Unknown Rx HYDROcodone/APAP 5-325 [[place] 1 each PO Q6HR PRN #14 tablet 02/25/17 Unknown Rx 5/325] Ibuprofen [Motrin] 600 mg PO Q8H PRN #15 tablet 02/25/17 Unknown Rx Albuterol Mdi (or & Nicu Only) 2 puff IH Q4HR PRN #1 inhalation 03/11/18 Unknown Rx [ProAir HFA Inhaler] Amoxicillin 500 mg PO QID #28 capsule 09/07/17 Unknown Rx predniSONE [Deltasone] 20 mg PO QDAY #5 tab 09/07/17 Unknown Rx Famotidine [Pepcid] 20 mg PO BID #20 tablet 12/03/18 Unknown Rx diphenhydrAMINE [Benadryl CAP] 25 mg PO Q8HR #10 capsule 12/03/18 Unknown Rx predniSONE [Deltasone] 20 mg PO QDAY #5 tab 12/03/18 Unknown Rx ED Review of Systems ROS: Stated complaint: ABDOMINAL PAIN Other details as noted in HPI Comment: All other systems reviewed and negative Constitutional: denies: chills, fever Eyes: denies: eye pain, vision change ENT: denies: ear pain, throat pain Respiratory: denies: cough, shortness of breath Cardiovascular: denies: chest pain, palpitations Gastrointestinal: abdominal pain, nausea, vomiting Genitourinary: denies: dysuria, discharge Musculoskeletal: denies: back pain, arthralgia Skin: denies: rash, lesions Neurological: denies: headache, weakness Physical Exam - Physical Exam Vital Signs: Vital Signs 08/24/20 21:14 Temperature 98.2 F Pulse Rate 62 Respiratory 18 Rate Blood Pressure 73/36 [Left] O2 Sat by Pulse 96 Oximetry Physical Exam: GENERAL: The patient is well-developed well-nourished. HENT: Normocephalic. Atraumatic. Patient has moist mucous membranes. EYES: Extraocular motions are intact. No nystagmus. NECK: Supple. Trachea is midline. CHEST/LUNGS: Clear to auscultation. There is no respiratory distress noted. HEART/CARDIOVASCULAR: Regular. There is no tachycardia. There is no murmur. ABDOMEN: Abdomen is soft. There is generalized abdominal tenderness to palpation. Mild abdominal distention. SKIN: Skin is warm and dry. NEURO: The patient is awake, alert, and oriented. The patient is cooperative. The patient has no focal neurologic deficits. Normal speech. Cranial nerves II through XII grossly intact. MUSCULOSKELETAL: There is no tenderness or deformity. There is no limitation range of motion. ED Course Vital Signs 08/24/20 21:14 Temperature 98.2 F Pulse Rate 62 Respiratory 18 Rate Blood Pressure 73/36 [Left] O2 Sat by Pulse 96 Oximetry - Consultations Consultation #1: 08/24/20 23:01 I spoke to the general surgeon on-call, Dr. Grant, regarding the patient's presentation and the CT findings of a small bowel obstruction. She would like in a nasogastric tube placed, IV fluid resuscitation, pain control, and she will see the patient as a consult. The patient is to be admitted to the hospitalist service. ED Medical Decision Making - Lab Data Result diagrams: 08/24/20 21:12 08/24/20 21:12 - Radiology Data Radiology results: report reviewed CT head/brain wo con INDICATION: Patient complains of a headache. TECHNIQUE: Routine CT head without contrast. All CT scans at this location are performed using CT dose reduction for ALARA by means of automated exposure control. COMPARISON: 12/12/2016 CT head FINDINGS: BRAIN / INTRACRANIAL CONTENTS: No acute hemorrhage, mass effect, midline shift, or hydrocephalus. No appreciable acute large territorial or lacunar infarct. No chronic infarct or focal atrophy. Normal brain volume and ventricular/sulcal size for age. No extra-axial blood or fluid collection. ORBITS: No significant abnormality of visualized orbits. SINUSES / MASTOIDS: No significant abnormality of visualized sinuses and mastoid air cells. ADDITIONAL FINDINGS: None. IMPRESSION: 1. No acute intracranial abnormality or significant interval change when compared to 12/12/2016 CT ABDOMEN AND PELVIS WITH CONTRAST INDICATION / CLINICAL INFORMATION: Patient complains of upper abd pain. TECHNIQUE: Axial CT images were obtained through the abdomen and pelvis after IV contrast. All CT scans at this location are performed using CT dose reduction for ALARA by means of automated exposure co ntrol. COMPARISON: CT from 06/07/2014 FINDINGS: LOWER CHEST: Bibasilar volume loss. LIVER: No significant abnormality GALLBLADDER/BILIARY TREE: No significant abnormality PANCREAS: No significant abnormality SPLEEN: Mild splenomegaly, measuring 13 cm in craniocaudal dimension. ADRENALS: No significant abnormality KIDNEYS / URETER: Bilateral nephrolithiasis. No renal calculus or hydronephrosis. URINARY BLADDER: Bladder is decompressed, limiting further evaluation. REPRODUCTIVE ORGANS: No significant abnormality STOMACH / SMALL BOWEL: Dilated loops of small bowel with transition in the central pelvis (series 4 image 63). There is decompressed small bowel distally. No pneumatosis. COLON: The colon is unremarkable. The appendix is normal in caliber. LYMPH NODES: No significant adenopathy. VASCULATURE: No significant abnormality. OTHER: No free air, free fluid, or focal fluid collection is identified. SKELETAL SYSTEM: Degenerative changes and scoliotic curvature of the thoracolumbar spine with levoscoliosis centered at L2. IMPRESSION: 1. Small bowel obstruction with transition point located within the central pelvis. 2. Nonspecific mild splenomegaly. 3. Other chronic, incidental findings as above. - Medical Decision Making This patient presents to the emergency department with complaint of severe abdominal pain that she describes as being in the epigastric region. Towards the evening the patient also had some lightheadedness along with one episode of vomiting. On examination the patient has generalized abdominal tenderness to palpation with mild abdominal distention. Labs have been mostly unremarkable including CBC, metabolic panel and lipase. Abdominal x-ray shows some moderate bowel gas without obvious signs of obstruction. Chest x-ray does not show any pneumonia, pleural effusions, pneumothorax, or any other acute process. The patient had a CT scan of the abdomen and pelvis with IV contrast that shows a small bowel obstruction with a transition point in the pelvis. General surgery was contacted and consulted. An NG tube will be placed to low intermittent suction. The patient will be admitted to the hospital for further evaluation and treatment and was accepted for admission by the hospitalist, Dr. Tovar. All of the lab and imaging results were discussed with the patient, as well as the plan for admission and NG tube placement, and the patient understands and agrees. Critical Care Time: Yes Critical care time in (mins) excluding proc time.: 35 Critical care attestation.: If time is entered above; I have spent that time in minutes in the direct care of this critically ill patient, excluding procedure time. Critical care time was spent on this patient in doing her initial evaluation, multiple reevaluations, ordering and interpretation of labs and imaging, multiple discussions with the patient, consultation with general surgery. Critical Care Time: 35 minutes ED Disposition Clinical Impression: Small bowel obstruction, Tobacco use, Intractable abdominal pain Disposition: OP ADMIT IP TO THIS HOSP Is pt being admited?: Yes Condition: Serious Time of Disposition: 23:07
[2020-08-24] MEDS ORDERED: ONDANSETRON 4 MG/2 ML INJ ONE (21:32)
[2020-08-24 21:34] LABS: INR 0.97 (0.87-1.13)
[2020-08-24 21:35] LABS: Partial Thromboplastin Time 27.5 Sec. (24.2-36.6)
[2020-08-24] MEDS ORDERED: MORPHINE 2 MG/1 ML INJ IV ONE (21:44)
[2020-08-24] MEDS ORDERED: ONDANSETRON 4 MG/2 ML INJ IV ONE (21:44)
[2020-08-24 21:47] LABS: Alanine Aminotransferase 13 units/L (7-56); Albumin 4.6 g/dL (3.9-5); BUN/Creatinine Ratio 14; Blood Urea Nitrogen 13 mg/dL (7-17); Calcium 11.2 mg/dL (8.4-10.2); Hemolysis Index 3
--- NOTE | 2020-08-24 21:56 | XRay Report ---
CHEST / ABDOMEN 1 VIEW INDICATION / CLINICAL INFORMATION: epigastric pain. COMPARISON: 2 view chest 09/07/2017 and 2 view abdomen 12/12/2016 FINDINGS: SUPPORT DEVICES: None. HEART / MEDIASTINUM: No significant abnormality. LUNGS / PLEURA: No significant pulmonary or pleural abnormality. No pneumothorax. TUBES / LINES: None. BOWEL GAS PATTERN: No significant abnormality. FREE AIR / EXTRALUMINAL GAS: None seen. ADDITIONAL FINDINGS: Mild levoconvex lumbar scoliosis. IMPRESSION: 1. No acute findings. Signer Name: Alex Bush MD Signed: 08/24/2020 9:51 PM Workstation Name: [id number]
--- NOTE | 2020-08-24 22:42 | Cat Scan Report ---
CT head/brain wo con INDICATION: Patient complains of a headache. TECHNIQUE: Routine CT head without contrast. All CT scans at this location are performed using CT dos e reduction for ALARA by means of automated exposure control. COMPARISON: 12/12/2016 CT head FINDINGS: BRAIN / INTRACRANIAL CONTENTS: No acute hemorrhage, mass effect, midline shift, or hydrocephalus. No appreciable acute large territorial or lacunar infarct. No chronic infarct or focal atrophy. Normal b rain volume and ventricular/sulcal size for age. No extra-axial blood or fluid collection. ORBITS: No significant abnormality of visualized orbits. SINUSES / MASTOIDS: No significant abnormality of visualized sinuses and mastoid air cells. ADDITIONAL FINDINGS: None. IMPRESSION: 1. No acute intracranial abnormality or significant interval change when compared to 12/12/2016. Signer Name: Alex Bush MD Signed: 08/24/2020 10:37 PM Workstation Name: [id number]
--- NOTE | 2020-08-24 22:44 | Cat Scan Report ---
CT ABDOMEN AND PELVIS WITH CONTRAST INDICATION / CLINICAL INFORMATION: Patient complains of upper abd pain. TECHNIQUE: Axial CT images were obtained through the abdomen and pelvis after IV contrast. All CT sc ans at this location are performed using CT dose reduction for ALARA by means of automated exposure c ontrol. COMPARISON: CT from 06/07/2014 FINDINGS: LOWER CHEST: Bibasilar volume loss. LIVER: No significant abnormality GALLBLADDER/BILIARY TREE: No significant abnormality PANCREAS: No significant abnormality SPLEEN: Mild splenomegaly, measuring 13 cm in craniocaudal dimension. ADRENALS: No significant abnormality KIDNEYS / URETER: Bilateral nephrolithiasis. No renal calculus or hydronephrosis. URINARY BLADDER: Bladder is decompressed, limiting further evaluation. REPRODUCTIVE ORGANS: No significant abnormality STOMACH / SMALL BOWEL: Dilated loops of small bowel with transition in the central pelvis (series 4 i mage 63). There is decompressed small bowel distally. No pneumatosis. COLON: The colon is unremarkable. The appendix is normal in caliber. LYMPH NODES: No significant adenopathy. VASCULATURE: No significant abnormality. OTHER: No free air, free fluid, or focal fluid collection is identified. SKELETAL SYSTEM: Degenerative changes and scoliotic curvature of the thoracolumbar spine with levosco liosis centered at L2. IMPRESSION: 1. Small bowel obstruction with transition point located within the central pelvis. 2. Nonspecific mild splenomegaly. 3. Other chronic, incidental findings as above. Signer Name: Cale Arciniega MD Signed: 08/24/2020 10:39 PM Workstation Name: [id number]
[2020-08-24] MEDS ORDERED: MORPHINE 4 MG/1 ML INJ IV ONE (23:37)
[2020-08-25] MEDS ORDERED: ACETAMINOPHEN 650 MG RECT SUPP PR PRN (00:30)
[2020-08-25] MEDS ORDERED: LIDOCAINE VISCOUS 2% 15 ML ORAL LIQD ONE (01:02)
[2020-08-25] MEDS: metroNIDAZOLE/NS 500 MG/100 ML 500 MG/100 ML BAG IV SCH ×3 (02:08→16:36)
--- NOTE | 2020-08-25 02:32 | XRay Report ---
ABDOMEN 1 VIEW INDICATION / CLINICAL INFORMATION: ng tube placement. COMPARISON: CT from 08/24/2020 FINDINGS: Nasogastric tube side port projects over the distal esophagus. Recommend further advancement. Signer Name: Cale Arciniega MD Signed: 08/25/2020 2:28 AM Workstation Name: [id number]
--- NOTE | 2020-08-25 08:27 | History and Physical Report ---
History of Present Illness Date of examination: 08/24/20 Date of admission: 08/24/20 23:07 Chief complaint: Chief complaint is abdominal pain, other complaint include nausea and vomiting History of present illness: History of present illness patient is a 60-year-old female who started having epigastric abdominal pain on 04/23/2021 and states she thought it was gas and took some mixture of warm water and ezio but did not get any relief, patient states she tried to move her bowel by sitting on the commode for some time of felt like she was going to pass out. There was history of associated nausea and vomiting, there was no history of fever or chills and patient stated she moved her bowel prior to coming to the emergency room and did not have any feeling of constipation. Past History Past Medical History: arthritis Past Surgical History: hysterectomy, Other (TUBAL LIGATION) Medications and Allergies Allergies Allergy/AdvReac Type Severity Reaction Status Date / Time No Known Allergies Allergy Verified 06/07/14 09:51 Active Meds: Active Medications Acetaminophen (Acetaminophen 650 Mg Rect Supp) 650 mg [place] Q4H PRN PRN Reason: Fever >101 Sodium Chloride (Nacl 0.9% 1000 Ml) 1,000 mls @ 75 mls/hr IV DIRECT JENNIFER Levofloxacin/Dextrose (Levaquin 750mg/150ml) 750 mg in 150 mls @ 100 mls/hr IV Q24H JENNIFER; Protocol Last Admin: 08/25/20 03:49 Dose: 100 mls/hr Documented by: Metronidazole (Flagyl 500 Mg/100 Ml) 500 mg in 100 mls @ 100 mls/hr IV Q8H JENNIFER; Protocol Last Admin: 08/25/20 02:08 Dose: 100 mls/hr Documented by: Morphine Sulfate (Morphine 2 Mg/1 Ml Inj) 2 mg IV Q3H PRN PRN Reason: Pain, Moderate (4-6) Ondansetron HCl (Ondansetron 4 Mg/2 Ml Inj) 4 mg IV Q8H PRN PRN Reason: Nausea And Vomiting Review of Systems Constitutional: no fever, no chills, no sweats, no weakness, no malaise Eyes: right: dry eye, bilateral: other (NO BILATERAL EYE SYMPTOM) Ears, nose, mouth and throat: no ear pain Breasts: deferred Cardiovascular: no chest pain, no orthopnea, no syncope, no lightheadedness, no shortness of breath Respiratory: no cough Gastrointestinal: abdominal pain, nausea, vomiting, no diarrhea, no constipation, no hematemesis, no coffee ground emesis, no melena, no hematochezia, no loss of appetite, no early satiety, no heartburn, no jaundice Genitourinary Female: no pelvic pain, no flank pain, no menorrhagia, no dysuria, no urinary frequency, no urgency, no stress incontinence, no difficulty voiding, no Menstruation: postmenopausal Rectal: no pain Musculoskeletal: no neck stiffness, no neck pain Integumentary: no rash, no pruritis, no redness, no sores, no wounds, no jaundice Neurological: no paralysis, no weakness, no parathesias, no numbness, no tingling, no seizures, no syncope, no vertigo, no headaches Psychiatric: no anxiety, no depression Endocrine: no polyphagia, no polydipsia, no polyuria Hematologic/Lymphatic: no easy bruising, no easy bleeding Exam - Constitutional Vitals: Temp Pulse Resp BP Pulse Ox 98.2 F 62 18 121/69 96 08/24/20 21:14 08/24/20 21:14 08/24/20 21:14 08/24/20 21:25 08/24/20 21:14 General appearance: Present: mild distress - EENT Eyes: Present: PERRL, EOM intact ENT: hearing intact, clear oral mucosa, dentition normal - Neck Neck: Present: supple, normal ROM - Respiratory Respiratory effort: normal - Cardiovascular Rhythm: regular Heart Sounds: Present: S1 & S2. Absent: gallop, systolic murmur, diastolic murmur, click - Extremities Extremities: no ischemia, No edema Peripheral Pulses: within normal limits - Abdominal General gastrointestinal: Present: soft, tender, non-distended, normal bowel sounds. Absent: non-tender, distended, rigid, absent bowel sounds, hepatomegaly , splenomegaly, mass Localized gastrointestinal: tender: LLQ Female genitourinary: Present: deferred - Rectal Rectal Exam: deferred - Integumentary Integumentary: Present: clear, warm, dry - Musculoskeletal Musculoskeletal: strength equal bilaterally HEART Score - HEART Score Risk factors: 1-2 risk factors Troponin: Troponin T < 0.010 ng/mL (0.00-0.029) 08/24/20 21:12 Troponin: < normal limit - Critical Actions Critical Actions: 0-3 pts:0.9-1.7%risk of adverse cardiac event.Candidate for discharge Results - Labs CBC & Chem 7: 08/24/20 21:12 08/24/20 21:12 Labs: Laboratory Last Values WBC 7.0 K/mm3 (4.5-11.0) 08/24/20 21:12 RBC 5.18 M/mm3 (3.65-5.03) H 08/24/20 21:12 Hgb 14.4 gm/dl (10.1-14.3) H 08/24/20 21:12 Hct 41.6 % (30.3-42.9) 08/24/20 21:12 MCV 80 fl (79-97) 08/24/20 21:12 MCH 28 pg (28-32) 08/24/20 21:12 MCHC 35 % (30-34) H 08/24/20 21:12 RDW 13.3 % (13.2-15.2) 08/24/20 21:12 Plt Count 275 K/mm3 (140-440) 08/24/20 21:12 Lymph % (Auto) 27.8 % (13.4-35.0) 08/24/20 21:12 Daniels % (Auto) 4.9 % (0.0-7.3) 08/24/20 21:12 Eos % (Auto) 1.3 % (0.0-4.3) 08/24/20 21:12 Baso % (Auto) 0.4 % (0.0-1.8) 08/24/20 21:12 Lymph # (Auto) 1.9 K/mm3 (1.2-5.4) 08/24/20 21:12 Daniels # (Auto) 0.3 K/mm3 (0.0-0.8) 08/24/20 21:12 Eos # (Auto) 0.1 K/mm3 (0.0-0.4) 08/24/20 21:12 Baso # (Auto) 0.0 K/mm3 (0.0-0.1) 08/24/20 21:12 Seg Neutrophils % 65.6 % (40.0-70.0) 08/24/20 21:12 Seg Neutrophils # 4.6 K/mm3 (1.8-7.7) 08/24/20 21:12 PT 12.8 Sec. (12.2-14.9) 08/24/20 21:12 INR 0.97 (0.87-1.13) 08/24/20 21:12 APTT 27.5 Sec. (24.2-36.6) 08/24/20 21:12 Sodium 136 mmol/L (137-145) L 08/24/20 21:12 Potassium 4.0 mmol/L (3.6-5.0) 08/24/20 21:12 Chloride 101.9 mmol/L (98-107) 08/24/20 21:12 Carbon Dioxide 22 mmol/L (22-30) 08/24/20 21:12 Anion Gap 16 mmol/L 08/24/20 21:12 BUN 13 mg/dL (7-17) 08/24/20 21:12 Creatinine 0.9 mg/dL (0.6-1.2) 08/24/20 21:12 Estimated GFR > 60 ml/min 08/24/20 21:12 BUN/Creatinine Ratio 14 % 08/24/20 21:12 Glucose 137 mg/dL (65-100) H 08/24/20 21:12 Lactic Acid 1.20 mmol/L (0.7-2.0) 08/24/20 21:12 Calcium 11.2 mg/dL (8.4-10.2) H 08/24/20 21:12 Total Bilirubin 0.60 mg/dL (0.1-1.2) 08/24/20 21:12 AST 16 units/L (5-40) 08/24/20 21:12 ALT 13 units/L (7-56) 08/24/20 21:12 Alkaline Phosphatase 143 units/L (35-129) H 08/24/20 21:12 Troponin T < 0.010 ng/mL (0.00-0.029) 08/24/20 21:12 Total Protein 8.7 g/dL (6.3-8.2) H 08/24/20 21:12 Albumin 4.6 g/dL (3.9-5) 08/24/20 21:12 Albumin/Globulin Ratio 1.1 % 08/24/20 21:12 Lipase 21 units/L (13-60) 08/24/20 21:12 Microbiology: Microbiology 08/24/20 21:13 Peripheral/Venous Blood Culture - Preliminary Culture in Progress 08/24/20 21:29 Peripheral/Venous Blood Culture - Preliminary Culture in Progress Forde/IV: Voiding Method Toilet Assessment and Plan - Patient Problems (1) Small bowel obstruction Current Visit: Yes Status: Acute Plan to address problem: 1. NPO 2. INTERMITTENT LOW WALL NG SUCTIONING 3. I.V NORMAL SALINE 4. I.V LEVAQUIN ANTIBIOTIC 5. I,V METRONIDAZOLE 6 . SURGICAL CONSULT 7. I.V MORPHINE FOR PAIN 8. I. V ZOFRAN FOR NAUSEA AND VOMITING
--- NOTE | 2020-08-25 09:01 | XRay Report ---
ABDOMEN 1 VIEW(S) 08/25/2020 8:34 AM INDICATION / CLINICAL INFORMATION: for NGT placement. COMPARISON: 2:23 AM same day FINDINGS: The tip of an esophagogastric tube is been advanced and is now coiled within body of stomach in expec tunde position Signer Name: Dinh Morgan MD Signed: 08/25/2020 8:57 AM Workstation Name: [id number]
[2020-08-25] MEDS: MORPHINE 2 MG/1 ML INJ IV PRN ×5 (10:24→23:12)
[2020-08-25] MEDS: SODIUM CHLORIDE 0.9% 1000 ML 1,000 ML IV SCH (10:32)
--- NOTE | 2020-08-25 14:01 | XRay Report ---
Abdominal series with chest x-ray one view HISTORY: Small bowel obstruction COMPARISON: Earlier today at 0835 hours IMPRESSION: Single view of the chest. Nasogastric tube is coiled in the stomach in the same position. Supine and upright views the abdomen demonstrate a few mildly dilated loops of small bowel with air-fluid levels . No evidence for free air or pathologic calcifications. No overwhelming change since the exam chun blanca today. Signer Name: Guicho Giles Jr, MD Signed: 08/25/2020 1:57 PM Workstation Name: [id number]
[2020-08-25] MEDS ORDERED: PHENOL 1.4% 177 ML BOTTLE MM PRN (15:31)
--- NOTE | 2020-08-25 16:24 | Consultation ---
History of Present Illness Consult date: 08/25/20 Reason for consult: abdominal pain Chief complaint: Abdominal pain - History of present illness History of present illness: 60-year-old female with a past surgical history of lap tubal ligation, open hyst erectomy who presents to the emergency room with 1 week of worsening abdominal pain. The pain started off as cramping in the mid abdomen which would come and go quickly. However yesterday the pain became severe and constant. The patient describes crampy pain in the epigastric area. It does not radiate. It is alleviated temporarily by IV pain medications administered in the hospital. She had one episode of vomiting. No fevers or chills. No chest pain or shortness of breath. She has never had pain like this in the past. An NG tube was placed in the emergency room which has produced scant drainage. She has been having normal bowel movements daily, with the last bowel movement yesterday. She has been passing flatus up until today. Past History Past Medical History: arthritis Past Surgical History: hysterectomy, Other (TUBAL LIGATION) Medications and Allergies Allergies Allergy/AdvReac Type Severity Reaction Status Date / Time No Known Allergies Allergy Verified 06/07/14 09:51 Active Meds: Active Medications Acetaminophen (Acetaminophen 650 Mg Rect Supp) 650 mg [place] Q4H PRN PRN Reason: Fever >101 Bisacodyl (Bisacodyl 10 Mg Rect Supp) 10 mg DE QDAY JENNIFER Famotidine (Famotidine 20 Mg/2 Ml Inj) 20 mg IV QDAY JENNIFER Sodium Chloride (Nacl 0.9% 1000 Ml) 1,000 mls @ 75 mls/hr IV DIRECT JENNIFER Last Admin: 08/25/20 10:32 Dose: 75 mls/hr Documented by: Levofloxacin/Dextrose (Levaquin 750mg/150ml) 750 mg in 150 mls @ 100 mls/hr IV Q24H JENNIFER; Protocol Last Admin: 08/25/20 03:49 Dose: 100 mls/hr Documented by: Metronidazole (Flagyl 500 Mg/100 Ml) 500 mg in 100 mls @ 100 mls/hr IV Q8H JENNIFER; Protocol Last Admin: 08/25/20 10:24 Dose: 100 mls/hr Documented by: Morphine Sulfate (Morphine 2 Mg/1 Ml Inj) 2 mg IV Q3H PRN PRN Reason: Pain, Moderate (4-6) Last Admin: 08/25/20 15:06 Dose: 2 mg Documented by: Ondansetron HCl (Ondansetron 4 Mg/2 Ml Inj) 4 mg IV Q8H PRN PRN Reason: Nausea And Vomiting Phenol (Phenol 1.4% 177 Ml Bottle) 1 spray MM PRN PRN PRN Reason: Sore Throat Review of Systems All systems: negative (10 point ROS performed and negative except for that listed in HPI) Exam Vital Signs Temp Pulse Resp BP Pulse Ox 98.2 F 62 18 73/36 96 08/24/20 21:14 08/24/20 21:14 08/24/20 21:14 08/24/20 21:14 08/24/20 21:14 Narrative exam: Gen.: Awake, alert, oriented 3. Mild distress due to pain ENT: Trachea midline. No lymphadenopathy. No scleral icterus or conjunctival pallor. NG tube in place with scant gastric drainage CV: S1, S2 present Respiratory: No audible wheezes Abdomen: Soft, nondistended, mild epigastric tenderness to palpation. No rebound, rigidity, guarding. Well-healed umbilical surgical scar and Pfannenstiel scar Extremities: No clubbing, cyanosis, edema Results - Labs 08/24/20 21:12 08/24/20 21:12 Abnormal lab results 08/24/20 08/24/20 Range/Units 21:12 21:12 RBC 5.18 H (3.65-5.03) M/mm3 Hgb 14.4 H (10.1-14.3) gm/dl MCHC 35 H (30-34) % Sodium 136 L (137-145) mmol/L Glucose 137 H (65-100) mg/dL Calcium 11.2 H (8.4-10.2) mg/dL Alkaline Phosphatase 143 H (35-129) units/L Total Protein 8.7 H (6.3-8.2) g/dL Diabetes panel 08/24/20 Range/Units 21:12 Sodium 136 L (137-145) mmol/L Potassium 4.0 (3.6-5.0) mmol/L Chloride 101.9 (98-107) mmol/L Carbon Dioxide 22 (22-30) mmol/L BUN 13 (7-17) mg/dL Creatinine 0.9 (0.6-1.2) mg/dL Glucose 137 H (65-100) mg/dL Calcium 11.2 H (8.4-10.2) mg/dL AST 16 (5-40) units/L ALT 13 (7-56) units/L Alkaline Phosphatase 143 H (35-129) units/L Total Protein 8.7 H (6.3-8.2) g/dL Albumin 4.6 (3.9-5) g/dL Calcium panel 08/24/20 Range/Units 21:12 Calcium 11.2 H (8.4-10.2) mg/dL Albumin 4.6 (3.9-5) g/dL Pituitary panel 08/24/20 Range/Units 21:12 Sodium 136 L (137-145) mmol/L Potassium 4.0 (3.6-5.0) mmol/L Chloride 101.9 (98-107) mmol/L Carbon Dioxide 22 (22-30) mmol/L BUN 13 (7-17) mg/dL Creatinine 0.9 (0.6-1.2) mg/dL Glucose 137 H (65-100) mg/dL Calcium 11.2 H (8.4-10.2) mg/dL Adrenal panel 08/24/20 Range/Units 21:12 Sodium 136 L (137-145) mmol/L Potassium 4.0 (3.6-5.0) mmol/L Chloride 101.9 (98-107) mmol/L Carbon Dioxide 22 (22-30) mmol/L BUN 13 (7-17) mg/dL Creatinine 0.9 (0.6-1.2) mg/dL Glucose 137 H (65-100) mg/dL Calcium 11.2 H (8.4-10.2) mg/dL Total Bilirubin 0.60 (0.1-1.2) mg/dL AST 16 (5-40) units/L ALT 13 (7-56) units/L Alkaline Phosphatase 143 H (35-129) units/L Total Protein 8.7 H (6.3-8.2) g/dL Albumin 4.6 (3.9-5) g/dL - Imaging Chest x-ray: report reviewed, image reviewed Abdominal x-ray: report reviewed, image reviewed CT scan - abdomen: report reviewed, image reviewed CT scan - pelvis: report reviewed, image reviewed Assessment and Plan 60-year-old female with small bowel obstruction likely secondary to adhesive disease Plan: 1. NPO except ice chips 2. Maintain NGT to LIWS - record output q shift 3. OOB/ambulate 4. prn pain control 5. chloroseptic spray PRN 6. Pepcid IV daily 7. DVT ppx 8. repeat obs series on Sun 08/27. Multiple abd xray today 9. BMP in am - replace lytes as needed Discussed pathophysiology of small bowel obstruction with the patient in detail. Explained that we will continue conservative management and monitor her daily. If her symptoms do not resolve with nonsurgical management or symptoms worsen, will have to consider surgical intervention. The patient understands and all questions were answered. Thank you for this consultation. Please call with any questions or concerns. Evaluation and treatment of this patient was during the time of the national and state emergency arising from COVID19 coronavirus pandemic. Treatment and procedures performed meet the current and available best practice and guidelines for patient during the COVID pandemic.
[2020-08-25] MEDS: ONDANSETRON 4 MG/2 ML INJ IV PRN (16:36)
--- NOTE | 2020-08-25 18:50 | XRay Report ---
. XR abd series w cxr 1VCHEST 1 VIEW, XR ABDOMEN 1 VIEW INDICATION / CLINICAL INFORMATION: sbo. COMPARISON: Abdomen x-ray dated same day FINDINGS: SUPPORT DEVICES: The enteric tube coils in the proximal stomach.. HEART / MEDIASTINUM: No significant abnormality. LUNGS / PLEURA: Lungs are clear. Costophrenic sulci are sharp. No pneumothorax. ABDOMEN: No significant change in the mildly dilated small bowel. ADDITIONAL FINDINGS: No significant additional findings. IMPRESSION: 1. No significant change. Signer Name: Augie Uriostegui MD Signed: 08/25/2020 6:45 PM Workstation Name: [id number]
[2020-08-26] MEDS: metroNIDAZOLE/NS 500 MG/100 ML 500 MG/100 ML BAG IV SCH ×3 (01:43→17:23)
[2020-08-26] MEDS: MORPHINE 2 MG/1 ML INJ IV PRN ×5 (02:06→22:05)
[2020-08-26] MEDS: ONDANSETRON 4 MG/2 ML INJ IV PRN ×3 (02:07→22:07)
[2020-08-26 06:36] LABS: Blood Urea Nitrogen 11 mg/dL (7-17); Calcium 10.4 mg/dL (8.4-10.2); Hemolysis Index 2
[2020-08-26 06:51] LABS: BUN/Creatinine Ratio 16
[2020-08-26] MEDS: SODIUM CHLORIDE 0.9% 1000 ML 1,000 ML IV SCH (08:20)
[2020-08-26] MEDS: FAMOTIDINE 20 MG/2 ML INJ IV SCH (08:36)
--- NOTE | 2020-08-26 09:39 | Progress Note ---
Assessment and Plan Assessment and plan: #Small bowel obstruction Continue n.p.o. except for ice chips NG tube in place Repeat abdominal imaging ordered today Surgery on board If patient fails to improve, patient will need to have surgery #DVT prophylaxis-Lovenox Full code History Interval history: 08/26. Patient seen and examined at bedside this morning No passing flatus She has NG tube in place N.p.o. except for ice chips Surgery on board Repeat imaging ordered for today Hospitalist Physical - Physical exam Narrative exam: VITAL SIGNS: Reviewed. GENERAL: Awake HEAD: No signs of head trauma. EYES: Pupils are equal. Extraocular motions intact. MOUTH: Oropharynx is normal. NECK: No adenopathy, no JVD. CHEST: Chest with diminished breath sounds bilaterally. No wheezes, rales, or rhonchi. CARDIAC: normal S1 and S2, without murmurs, gallops, or rubs. ABDOMEN: Soft, slight discomfort around the periumbilical area, bowel sounds slightly positive MUSCULOSKELETAL: No edema NEUROLOGIC EXAM: Alert and oriented x3. No focal neurologic deficits SKIN: No obvious lesions - Constitutional Vitals: Temp Pulse Resp BP Pulse Ox 98.4 F 65 18 145/84 96 08/26/20 07:38 08/26/20 07:38 08/26/20 07:38 08/26/20 07:38 08/26/20 07:38 HEART Score - HEART Score Risk factors: 1-2 risk factors Troponin: Troponin T < 0.010 ng/mL (0.00-0.029) 08/24/20 21:12 Troponin: < normal limit - Critical Actions Critical Actions: 0-3 pts:0.9-1.7%risk of adverse cardiac event.Candidate for discharge Results - Labs CBC & Chem 7: 08/24/20 21:12 08/26/20 04:57 Labs: Laboratory Last Values WBC 7.0 K/mm3 (4.5-11.0) 08/24/20 21:12 RBC 5.18 M/mm3 (3.65-5.03) H 08/24/20 21:12 Hgb 14.4 gm/dl (10.1-14.3) H 08/24/20 21:12 Hct 41.6 % (30.3-42.9) 08/24/20 21:12 MCV 80 fl (79-97) 08/24/20 21:12 MCH 28 pg (28-32) 08/24/20 21:12 MCHC 35 % (30-34) H 08/24/20 21:12 RDW 13.3 % (13.2-15.2) 08/24/20 21:12 Plt Count 275 K/mm3 (140-440) 08/24/20 21:12 Lymph % (Auto) 27.8 % (13.4-35.0) 08/24/20 21:12 Newberry % (Auto) 4.9 % (0.0-7.3) 08/24/20 21:12 Eos % (Auto) 1.3 % (0.0-4.3) 08/24/20 21:12 Baso % (Auto) 0.4 % (0.0-1.8) 08/24/20 21:12 Lymph # (Auto) 1.9 K/mm3 (1.2-5.4) 08/24/20 21:12 Newberry # (Auto) 0.3 K/mm3 (0.0-0.8) 08/24/20 21:12 Eos # (Auto) 0.1 K/mm3 (0.0-0.4) 08/24/20 21:12 Baso # (Auto) 0.0 K/mm3 (0.0-0.1) 08/24/20 21:12 Seg Neutrophils % 65.6 % (40.0-70.0) 08/24/20 21:12 Seg Neutrophils # 4.6 K/mm3 (1.8-7.7) 08/24/20 21:12 PT 12.8 Sec. (12.2-14.9) 08/24/20 21:12 INR 0.97 (0.87-1.13) 08/24/20 21:12 APTT 27.5 Sec. (24.2-36.6) 08/24/20 21:12 Sodium 138 mmol/L (137-145) 08/26/20 04:57 Potassium 4.1 mmol/L (3.6-5.0) 08/26/20 04:57 Chloride 103.2 mmol/L (98-107) 08/26/20 04:57 Carbon Dioxide 23 mmol/L (22-30) 08/26/20 04:57 Anion Gap 16 mmol/L 08/26/20 04:57 BUN 11 mg/dL (7-17) 08/26/20 04:57 Creatinine 0.7 mg/dL (0.6-1.2) 08/26/20 04:57 Estimated GFR > 60 ml/min 08/26/20 04:57 BUN/Creatinine Ratio 16 % 08/26/20 04:57 Glucose 106 mg/dL (65-100) H 08/26/20 04:57 Lactic Acid 1.20 mmol/L (0.7-2.0) 08/24/20 21:12 Calcium 10.4 mg/dL (8.4-10.2) H 08/26/20 04:57 Total Bilirubin 0.60 mg/dL (0.1-1.2) 08/24/20 21:12 AST 16 units/L (5-40) 08/24/20 21:12 ALT 13 units/L (7-56) 08/24/20 21:12 Alkaline Phosphatase 143 units/L (35-129) H 08/24/20 21:12 Troponin T < 0.010 ng/mL (0.00-0.029) 08/24/20 21:12 Total Protein 8.7 g/dL (6.3-8.2) H 08/24/20 21:12 Albumin 4.6 g/dL (3.9-5) 08/24/20 21:12 Albumin/Globulin Ratio 1.1 % 08/24/20 21:12 Lipase 21 units/L (13-60) 08/24/20 21:12 Microbiology: Microbiology 08/24/20 21:13 Peripheral/Venous Blood Culture - Preliminary NO GROWTH AFTER 24 HOURS 08/24/20 21:29 Peripheral/Venous Blood Culture - Preliminary NO GROWTH AFTER 24 HOURS Forde/IV: Voiding Method Toilet Active Medications - Current Medications Current Medications: Generic Name Dose Route Start Last Admin Trade Name Freq PRN Reason Stop Dose Admin Acetaminophen 650 mg 08/25/20 00:30 Acetaminophen 650 Mg Rect Supp [place] Q4H PRN Fever >101 Bisacodyl 10 mg 08/26/20 08:00 08/26/20 08:36 Bisacodyl 10 Mg Rect Supp IL 10 mg QDAY JENNIFER Administration Famotidine 20 mg 08/26/20 08:00 08/26/20 08:36 Famotidine 20 Mg/2 Ml Inj IV 20 mg QDAY JENNIFER Administration Sodium Chloride 1,000 mls @ 75 mls/hr 08/25/20 00:30 08/26/20 08:20 Nacl 0.9% 1000 Ml IV 75 mls/hr DIRECT JENNIFER Administration Levofloxacin/Dextrose 750 mg in 150 mls @ 100 mls/hr 08/25/20 01:00 08/26/20 01:43 Levaquin 750mg/150ml IV 100 mls/hr Q24H JENNIFER Administration Protocol Metronidazole 500 mg in 100 mls @ 100 mls/hr 08/25/20 01:00 08/26/20 08:36 Flagyl 500 Mg/100 Ml IV 100 mls/hr Q8H JENNIFER Administration Protocol Morphine Sulfate 2 mg 08/25/20 00:23 08/26/20 04:58 Morphine 2 Mg/1 Ml Inj IV 2 mg Q3H PRN Administration Pain, Moderate (4-6) Ondansetron HCl 4 mg 08/25/20 00:25 08/26/20 02:07 Ondansetron 4 Mg/2 Ml Inj IV 4 mg Q8H PRN Administration Nausea And Vomiting Phenol 1 spray 08/25/20 15:31 Phenol 1.4% 177 Ml Bottle MM PRN PRN Sore Throat
--- NOTE | 2020-08-26 10:03 | Progress Note ---
Assessment and Plan 60 year old female with SBO likely due to adhesive disease from previous abdominal surgery. Afebrile and stable showing no signs of perforation or ischemia. Will continue NGT decompression, NPO, and IV hydration. repeat abdominal x-ray in am. Subjective Date of service: 08/26/20 Patient Reports: Positive: no new complaints, no flatus, no bowel movement (No acute events overnight. Pt says that she feels a little better but still has not passed any flatus. Denies n/v.) Objective Vital Signs - 12hr 08/26/20 08/26/20 08/26/20 00:53 06:03 07:38 Temperature 98.5 F 97.8 F 98.4 F Pulse Rate 58 L 68 65 Respiratory 16 15 18 Rate Blood Pressure 167/79 148/89 145/84 O2 Sat by Pulse 93 95 96 Oximetry - General physical appearance well developed, no distress, no pain - Respiratory normal expansion, normal respiratory effort - Abdomen soft, not guarding, not rigid, other (moderate distension, generalized tenderness to deep palpation, NGT with small amount of bilious fluid) - Labs 08/24/20 21:12 08/26/20 04:57 Diabetes panel 08/26/20 Range/Units 04:57 Sodium 138 (137-145) mmol/L Potassium 4.1 (3.6-5.0) mmol/L Chloride 103.2 (98-107) mmol/L Carbon Dioxide 23 (22-30) mmol/L BUN 11 (7-17) mg/dL Creatinine 0.7 (0.6-1.2) mg/dL Glucose 106 H (65-100) mg/dL Calcium 10.4 H (8.4-10.2) mg/dL Calcium panel 08/26/20 Range/Units 04:57 Calcium 10.4 H (8.4-10.2) mg/dL Pituitary panel 08/26/20 Range/Units 04:57 Sodium 138 (137-145) mmol/L Potassium 4.1 (3.6-5.0) mmol/L Chloride 103.2 (98-107) mmol/L Carbon Dioxide 23 (22-30) mmol/L BUN 11 (7-17) mg/dL Creatinine 0.7 (0.6-1.2) mg/dL Glucose 106 H (65-100) mg/dL Calcium 10.4 H (8.4-10.2) mg/dL Adrenal panel 08/26/20 Range/Units 04:57 Sodium 138 (137-145) mmol/L Potassium 4.1 (3.6-5.0) mmol/L Chloride 103.2 (98-107) mmol/L Carbon Dioxide 23 (22-30) mmol/L BUN 11 (7-17) mg/dL Creatinine 0.7 (0.6-1.2) mg/dL Glucose 106 H (65-100) mg/dL Calcium 10.4 H (8.4-10.2) mg/dL
[2020-08-26] MEDS: D5W/0.9% NACL 1,000 ML IV SCH ×2 (10:23→17:31)
[2020-08-26] MEDS: ENOXAPARIN 40 MG/0.4 ML INJ SUB-Q SCH (21:54)
[2020-08-27] MEDS: metroNIDAZOLE/NS 500 MG/100 ML 500 MG/100 ML BAG IV SCH ×3 (00:07→16:52)
[2020-08-27] MEDS: D5W/0.9% NACL 1,000 ML IV SCH ×2 (00:07→08:26)
[2020-08-27] MEDS: FAMOTIDINE 20 MG/2 ML INJ IV SCH (08:25)
--- NOTE | 2020-08-27 08:49 | Progress Note ---
Assessment and Plan Assessment and plan: #Small bowel obstruction Continue n.p.o. except for ice chips NG tube in place Repeat abdominal imaging today Surgery on board If patient fails to improve, patient will need to have surgery #DVT prophylaxis-Lovenox Full code History Interval history: 08/26. Patient seen and examined at bedside this morning No passing flatus She has NG tube in place N.p.o. except for ice chips Surgery on board Repeat imaging ordered for today 08/27. Had some vomiting yesterday Still not passing flatus Remains NPO and has NG tube in place. Surgery recs appreciated Hospitalist Physical - Physical exam Narrative exam: VITAL SIGNS: Reviewed. GENERAL: Awake HEAD: No signs of head trauma. EYES: Pupils are equal. Extraocular motions intact. MOUTH: Oropharynx is normal. NECK: No adenopathy, no JVD. CHEST: Chest with diminished breath sounds bilaterally. No wheezes, rales, or rhonchi. CARDIAC: normal S1 and S2, without murmurs, gallops, or rubs. ABDOMEN: Soft, slight discomfort around the periumbilical area, bowel sounds slightly positive MUSCULOSKELETAL: No edema NEUROLOGIC EXAM: Alert and oriented x3. No focal neurologic deficits SKIN: No obvious lesions - Constitutional Vitals: Temp Pulse Resp BP Pulse Ox 98.4 F 68 20 158/71 94 08/27/20 07:24 08/27/20 07:24 08/27/20 07:24 08/27/20 07:24 08/27/20 07:24 HEART Score - HEART Score Risk factors: 1-2 risk factors Troponin: Troponin T < 0.010 ng/mL (0.00-0.029) 08/24/20 21:12 Troponin: < normal limit - Critical Actions Critical Actions: 0-3 pts:0.9-1.7%risk of adverse cardiac event.Candidate for discharge Results - Labs CBC & Chem 7: 08/24/20 21:12 08/26/20 04:57 Labs: Laboratory Last Values WBC 7.0 K/mm3 (4.5-11.0) 08/24/20 21:12 RBC 5.18 M/mm3 (3.65-5.03) H 08/24/20 21:12 Hgb 14.4 gm/dl (10.1-14.3) H 08/24/20 21:12 Hct 41.6 % (30.3-42.9) 08/24/20 21:12 MCV 80 fl (79-97) 08/24/20 21:12 MCH 28 pg (28-32) 08/24/20 21:12 MCHC 35 % (30-34) H 08/24/20 21:12 RDW 13.3 % (13.2-15.2) 08/24/20 21:12 Plt Count 275 K/mm3 (140-440) 08/24/20 21:12 Lymph % (Auto) 27.8 % (13.4-35.0) 08/24/20 21:12 [place] % (Auto) 4.9 % (0.0-7.3) 08/24/20 21:12 Eos % (Auto) 1.3 % (0.0-4.3) 08/24/20 21:12 Baso % (Auto) 0.4 % (0.0-1.8) 08/24/20 21:12 Lymph # (Auto) 1.9 K/mm3 (1.2-5.4) 08/24/20 21:12 [place] # (Auto) 0.3 K/mm3 (0.0-0.8) 08/24/20 21:12 Eos # (Auto) 0.1 K/mm3 (0.0-0.4) 08/24/20 21:12 Baso # (Auto) 0.0 K/mm3 (0.0-0.1) 08/24/20 21:12 Seg Neutrophils % 65.6 % (40.0-70.0) 08/24/20 21:12 Seg Neutrophils # 4.6 K/mm3 (1.8-7.7) 08/24/20 21:12 PT 12.8 Sec. (12.2-14.9) 08/24/20 21:12 INR 0.97 (0.87-1.13) 08/24/20 21:12 APTT 27.5 Sec. (24.2-36.6) 08/24/20 21:12 Sodium 138 mmol/L (137-145) 08/26/20 04:57 Potassium 4.1 mmol/L (3.6-5.0) 08/26/20 04:57 Chloride 103.2 mmol/L (98-107) 08/26/20 04:57 Carbon Dioxide 23 mmol/L (22-30) 08/26/20 04:57 Anion Gap 16 mmol/L 08/26/20 04:57 BUN 11 mg/dL (7-17) 08/26/20 04:57 Creatinine 0.7 mg/dL (0.6-1.2) 08/26/20 04:57 Estimated GFR > 60 ml/min 08/26/20 04:57 BUN/Creatinine Ratio 16 % 08/26/20 04:57 Glucose 106 mg/dL (65-100) H 08/26/20 04:57 Lactic Acid 1.20 mmol/L (0.7-2.0) 08/24/20 21:12 Calcium 10.4 mg/dL (8.4-10.2) H 08/26/20 04:57 Total Bilirubin 0.60 mg/dL (0.1-1.2) 08/24/20 21:12 AST 16 units/L (5-40) 08/24/20 21:12 ALT 13 units/L (7-56) 08/24/20 21:12 Alkaline Phosphatase 143 units/L (35-129) H 08/24/20 21:12 Troponin T < 0.010 ng/mL (0.00-0.029) 08/24/20 21:12 Total Protein 8.7 g/dL (6.3-8.2) H 08/24/20 21:12 Albumin 4.6 g/dL (3.9-5) 08/24/20 21:12 Albumin/Globulin Ratio 1.1 % 08/24/20 21:12 Lipase 21 units/L (13-60) 08/24/20 21:12 Microbiology: Microbiology 08/24/20 21:13 Peripheral/Venous Blood Culture - Preliminary NO GROWTH AFTER 48 HOURS 08/24/20 21:29 Peripheral/Venous Blood Culture - Preliminary NO GROWTH AFTER 48 HOURS Forde/IV: Voiding Method Toilet Active Medications - Current Medications Current Medications: Generic Name Dose Route Start Last Admin Trade Name Freq PRN Reason Stop Dose Admin Acetaminophen 650 mg 08/25/20 00:30 Acetaminophen 650 Mg Rect Supp NE Q4H PRN Fever >101 Bisacodyl 10 mg 08/26/20 08:00 08/26/20 08:36 Bisacodyl 10 Mg Rect Supp NE 10 mg QDAY JENNIFER Administration Enoxaparin Sodium 40 mg 08/26/20 22:00 08/26/20 21:54 Enoxaparin 40 Mg/0.4 Ml Inj SUB-Q 40 mg QDAY@2200 JENNIFER Administration Protocol Famotidine 20 mg 08/26/20 08:00 08/27/20 08:25 Famotidine 20 Mg/2 Ml Inj IV 20 mg QDAY JENNIFER Administration Levofloxacin/Dextrose 750 mg in 150 mls @ 100 mls/hr 08/25/20 01:00 08/27/20 00:07 Levaquin 750mg/150ml IV 100 mls/hr Q24H JENNIFER Administration Protocol Metronidazole 500 mg in 100 mls @ 100 mls/hr 08/25/20 01:00 08/27/20 08:25 Flagyl 500 Mg/100 Ml IV 100 mls/hr Q8H JENNIFER Administration Protocol Dextrose/Sodium Chloride 1,000 mls @ 100 mls/hr 08/26/20 10:00 08/27/20 08:26 D5ns IV 100 mls/hr DIRECT JENNIFER Administration Morphine Sulfate 2 mg 08/25/20 00:23 08/26/20 22:05 Morphine 2 Mg/1 Ml Inj IV 2 mg Q3H PRN Administration Pain, Moderate (4-6) Ondansetron HCl 4 mg 08/25/20 00:25 08/26/20 22:07 Ondansetron 4 Mg/2 Ml Inj IV 4 mg Q8H PRN Administration Nausea And Vomiting Phenol 1 spray 08/25/20 15:31 Phenol 1.4% 177 Ml Bottle MM PRN PRN Sore Throat
--- NOTE | 2020-08-27 09:46 | XRay Report ---
ABDOMEN 2 VIEW(S) with chest radiograph INDICATION / CLINICAL INFORMATION: Small bowel obstruction COMPARISON: Abdominal radiograph, 08/25/2020 FINDINGS: TUBES / LINES: The distal end of the esophagogastric tube resides in the mid stomach. BOWEL GAS PATTERN: There are a few loops of mildly gas-distended small bowel within the central abdom en with a few air-fluid levels, slightly increased compared to the previous study. ADDITIONAL FINDINGS: Degenerative and scoliotic changes of the thoracolumbar spine are noted. The acc ompanying chest radiograph demonstrates no evidence of acute abnormality. IMPRESSION: 1. Few loops of mildly gas-distended small bowel with air-fluid levels appearing slightly more promin ent than on the previous study. Signer Name: Jaylyn Cuadra MD Signed: 08/27/2020 9:41 AM Workstation Name: [id number]
[2020-08-27] MEDS: MORPHINE 2 MG/1 ML INJ IV PRN ×2 (11:15→21:41)
--- NOTE | 2020-08-27 11:44 | Progress Note ---
Assessment and Plan 60 year old female with SBO likely due to adhesive disease from previous abdominal surgery. Afebrile and stable showing no signs of perforation or ischemia. Since pt is refusing to be replaced at this time, and had minimal out put will not replace NGT at this time. A discussion was had with the patient with the nurse in the room that should she get very nauseous, or vomit the tube should be replaced and she expressed understanding and agreed. Will repeat abdominal x-ray in am. continue NPP. Pending clinical progress and x-ray in am, will consider taking her for diagnostic laparoscopy as she is going on 72 hours of no significant progress. Subjective Date of service: 08/27/20 Patient Reports: Positive: still having pain, no flatus (pt says her pain is a littler worse than yesterday but better than when she first presented to hospital. Her NGT fell out this morning as she was sneezing. She had a smear of BM, but no flatus. She denies n/v.), other. Negative: vomiting Objective Vital Signs - 12hr 08/27/20 08/27/20 08/27/20 00:15 05:10 07:24 Temperature 98.1 F 97.8 F 98.4 F Pulse Rate 66 68 68 Respiratory 18 18 20 Rate Blood Pressure 161/73 133/92 158/71 O2 Sat by Pulse 92 95 94 Oximetry - General physical appearance well developed, well nourished, no distress, moderate pain - Respiratory normal expansion, normal respiratory effort - Abdomen soft, distended, not guarding, not rigid, other (moderate generalized tenderness to deep palpation. NGT canister with minimal gastric contents past 24 hours.) - Labs 08/24/20 21:12 08/26/20 04:57
[2020-08-27] MEDS: ONDANSETRON 4 MG/2 ML INJ IV PRN (21:27)
[2020-08-27] MEDS: ENOXAPARIN 40 MG/0.4 ML INJ SUB-Q SCH (21:27)
[2020-08-28] MEDS: metroNIDAZOLE/NS 500 MG/100 ML 500 MG/100 ML BAG IV SCH ×3 (00:01→17:58)
[2020-08-28] MEDS: D5W/0.9% NACL 1,000 ML IV SCH (00:02)
[2020-08-28] MEDS: MORPHINE 2 MG/1 ML INJ IV PRN ×3 (06:07→21:31)
[2020-08-28 06:08] LABS: Basophils % (Auto) 0.3 % (0.0-1.8); Eosinophils % (Auto) 0.2 % (0.0-4.3); Hematocrit 43.2 % (30.3-42.9); Hemoglobin 14.7 gm/dl (10.1-14.3); Lymphocytes # (Auto) 0.9 K/mm3 (1.2-5.4); Lymphocytes % (Auto) 17.2 % (13.4-35.0); Mean Corpuscular HGB Conc 34 % (30-34); Mean Corpuscular Volume 81 fl (79-97); Monocytes # (Auto) 0.4 K/mm3 (0.0-0.8); Monocytes % (Auto) 7.5 % (0.0-7.3); Platelet Count 208 K/mm3 (140-440); Red Blood Count 5.36 M/mm3 (3.65-5.03); Red Cell Distribution Width 12.9 % (13.2-15.2)
[2020-08-28 06:25] LABS: Alanine Aminotransferase 14 units/L (7-56); Blood Urea Nitrogen 6 mg/dL (7-17); Calcium 10.5 mg/dL (8.4-10.2); Hemolysis Index 2
[2020-08-28 06:26] LABS: BUN/Creatinine Ratio 10
[2020-08-28] MEDS: ONDANSETRON 4 MG/2 ML INJ IV PRN ×2 (06:34→21:30)
--- NOTE | 2020-08-28 08:44 | XRay Report ---
ABDOMEN 1 VIEW(S) INDICATION / CLINICAL INFORMATION: f/u sbo. COMPARISON: Previous day. FINDINGS: TUBES / LINES: NG tube in satisfactory position. BOWEL GAS PATTERN: Moderate distention of small bowel remains is overall similar in degree. The distr ibution of air is slightly different. ADDITIONAL FINDINGS: No significant additional findings. IMPRESSION: Persistent small bowel obstruction. Signer Name: Miguel Angel Art MD Signed: 08/28/2020 8:39 AM Workstation Name: [id number]
--- NOTE | 2020-08-28 09:08 | Progress Note ---
Assessment and Plan Assessment and plan: #Small bowel obstruction Continue n.p.o. except for ice chips NG tube in place Repeat abdominal imaging today Surgery on board If patient fails to improve, patient will need to have surgery #DVT prophylaxis-Lovenox Full code History Interval history: 08/26. Patient seen and examined at bedside this morning No passing flatus She has NG tube in place N.p.o. except for ice chips Surgery on board Repeat imaging ordered for today 08/27. Had some vomiting yesterday Still not passing flatus Remains NPO and has NG tube in place. Surgery recs appreciated 08/28. Had bilious vomiting overnight. Still not passing gas. NG remains in place with dark green/bilious drainage. Repat xray ordered this AM. Likely needs surgical intervention Hospitalist Physical - Physical exam Narrative exam: VITAL SIGNS: Reviewed. GENERAL: Awake HEAD: No signs of head trauma. EYES: Pupils are equal. Extraocular motions intact. MOUTH: Oropharynx is normal. NECK: No adenopathy, no JVD. CHEST: Chest with diminished breath sounds bilaterally. No wheezes, rales, or rhonchi. CARDIAC: normal S1 and S2, without murmurs, gallops, or rubs. ABDOMEN: Soft, slight discomfort around the periumbilical area, bowel sounds slightly positive MUSCULOSKELETAL: No edema NEUROLOGIC EXAM: Alert and oriented x3. No focal neurologic deficits SKIN: No obvious lesions - Constitutional Vitals: Temp Pulse Resp BP Pulse Ox 98.4 F 65 18 147/82 95 08/28/20 07:46 08/28/20 07:46 08/28/20 07:46 08/28/20 07:46 08/28/20 07:46 HEART Score - HEART Score Risk factors: 1-2 risk factors Troponin: Troponin T < 0.010 ng/mL (0.00-0.029) 08/24/20 21:12 Troponin: < normal limit - Critical Actions Critical Actions: 0-3 pts:0.9-1.7%risk of adverse cardiac event.Candidate for discharge Results - Labs CBC & Chem 7: 08/28/20 05:27 08/28/20 05:27 Labs: Laboratory Last Values WBC 5.2 K/mm3 (4.5-11.0) 08/28/20 05:27 RBC 5.36 M/mm3 (3.65-5.03) H 08/28/20 05:27 Hgb 14.7 gm/dl (10.1-14.3) H 08/28/20 05:27 Hct 43.2 % (30.3-42.9) H 08/28/20 05:27 MCV 81 fl (79-97) 08/28/20 05:27 MCH 27 pg (28-32) L 08/28/20 05:27 MCHC 34 % (30-34) 08/28/20 05:27 RDW 12.9 % (13.2-15.2) L 08/28/20 05:27 Plt Count 208 K/mm3 (140-440) 08/28/20 05:27 Lymph % (Auto) 17.2 % (13.4-35.0) 08/28/20 05:27 [place] % (Auto) 7.5 % (0.0-7.3) H 08/28/20 05:27 Eos % (Auto) 0.2 % (0.0-4.3) 08/28/20 05:27 Baso % (Auto) 0.3 % (0.0-1.8) 08/28/20 05:27 Lymph # (Auto) 0.9 K/mm3 (1.2-5.4) L 08/28/20 05:27 [place] # (Auto) 0.4 K/mm3 (0.0-0.8) 08/28/20 05:27 Eos # (Auto) 0.0 K/mm3 (0.0-0.4) 08/28/20 05:27 Baso # (Auto) 0.0 K/mm3 (0.0-0.1) 08/28/20 05:27 Seg Neutrophils % 74.8 % (40.0-70.0) H 08/28/20 05:27 Seg Neutrophils # 3.9 K/mm3 (1.8-7.7) 08/28/20 05:27 PT 12.8 Sec. (12.2-14.9) 08/24/20 21:12 INR 0.97 (0.87-1.13) 08/24/20 21:12 APTT 27.5 Sec. (24.2-36.6) 08/24/20 21:12 Sodium 136 mmol/L (137-145) L 08/28/20 05:27 Potassium 3.3 mmol/L (3.6-5.0) L 08/28/20 05:27 Chloride 101.3 mmol/L (98-107) 08/28/20 05:27 Carbon Dioxide 23 mmol/L (22-30) 08/28/20 05:27 Anion Gap 15 mmol/L 08/28/20 05:27 BUN 6 mg/dL (7-17) L 08/28/20 05:27 Creatinine 0.6 mg/dL (0.6-1.2) 08/28/20 05:27 Estimated GFR > 60 ml/min 08/28/20 05:27 BUN/Creatinine Ratio 10 % 08/28/20 05:27 Glucose 102 mg/dL (65-100) H 08/28/20 05:27 Lactic Acid 1.20 mmol/L (0.7-2.0) 08/24/20 21:12 Calcium 10.5 mg/dL (8.4-10.2) H 08/28/20 05:27 Total Bilirubin 0.50 mg/dL (0.1-1.2) 08/28/20 05:27 AST 26 units/L (5-40) 08/28/20 05:27 ALT 14 units/L (7-56) 08/28/20 05:27 Alkaline Phosphatase 112 units/L (35-129) 08/28/20 05:27 Troponin T < 0.010 ng/mL (0.00-0.029) 08/24/20 21:12 Total Protein 7.4 g/dL (6.3-8.2) 08/28/20 05:27 Albumin 4.0 g/dL (3.9-5) 08/28/20 05:27 Albumin/Globulin Ratio 1.2 % 08/28/20 05:27 Lipase 21 units/L (13-60) 08/24/20 21:12 Microbiology: Microbiology 08/24/20 21:13 Peripheral/Venous Blood Culture - Preliminary NO GROWTH AFTER 72 HOURS 08/24/20 21:29 Peripheral/Venous Blood Culture - Preliminary NO GROWTH AFTER 72 HOURS Forde/IV: Voiding Method Toilet Active Medications - Current Medications Current Medications: Generic Name Dose Route Start Last Admin Trade Name Freq PRN Reason Stop Dose Admin Acetaminophen 650 mg 08/25/20 00:30 Acetaminophen 650 Mg Rect Supp SD Q4H PRN Fever >101 Bisacodyl 10 mg 08/26/20 08:00 08/27/20 08:25 Bisacodyl 10 Mg Rect Supp SD 10 mg QDAY JENNIFER Administration Enoxaparin Sodium 40 mg 08/26/20 22:00 08/27/20 21:27 Enoxaparin 40 Mg/0.4 Ml Inj SUB-Q 40 mg QDAY@2200 JENNIFER Administration Protocol Famotidine 20 mg 08/26/20 08:00 08/27/20 08:25 Famotidine 20 Mg/2 Ml Inj IV 20 mg QDAY JENNIFER Administration Levofloxacin/Dextrose 750 mg in 150 mls @ 100 mls/hr 08/25/20 01:00 08/28/20 06:09 Levaquin 750mg/150ml IV Infused Q24H JENNIFER Infusion Protocol Metronidazole 500 mg in 100 mls @ 100 mls/hr 08/25/20 01:00 08/28/20 06:09 Flagyl 500 Mg/100 Ml IV Infused Q8H [facility] Infusion Protocol Dextrose/Sodium Chloride 1,000 mls @ 100 mls/hr 08/26/20 10:00 08/28/20 00:02 D5ns IV 100 mls/hr DIRECT JENNIFER Administration Potassium Chloride 10 meq in 100 mls @ 100 mls/hr 08/28/20 08:00 Kcl 10meq/100ml IV 08/28/20 11:59 Q1H [facility] Morphine Sulfate 2 mg 08/25/20 00:23 08/28/20 06:07 Morphine 2 Mg/1 Ml Inj IV 2 mg Q3H PRN Administration Pain, Moderate (4-6) Ondansetron HCl 4 mg 08/25/20 00:25 08/28/20 06:34 Ondansetron 4 Mg/2 Ml Inj IV 4 mg Q8H PRN Administration Nausea And Vomiting Phenol 1 spray 08/25/20 15:31 Phenol 1.4% 177 Ml Bottle MM PRN PRN Sore Throat
--- NOTE | 2020-08-28 10:07 | Event Note ---
Date: 08/28/20 Patient chart reviewed. Overnight patient experienced nausea and vomiting and NGT was replaced. Bilious fluid aspirated. 1 small BM over the weekend. VSS. Afebrile. WBC normal, K low Abd xray 08/28/20 - persistent SBO Plan: 1. Replace K 2. prn pain and nausea control 3. NGT to LIWS 4. IVF - add K 5. As no clinical improvement in 72 hours, recommend operative intervention for SBO. Discussed with patient who is agreeable. Will add to OR for today for diagnostic lap, possible exlap, possible bowel resection. Patient's daughter Adriana [phone] updated at patient's request.
[2020-08-28] MEDS ORDERED: BUPIVACAINE/PF (0.5%) 5 MG/1 ML 30 ML VIAL INFILTRATI ONE ×2 (10:57→14:24)
[2020-08-28] MEDS ORDERED: LIDOCAINE (1%) 10 MG/1 ML VIAL 20 ML MDV ONE (10:57)
[2020-08-28] MEDS: FAMOTIDINE 20 MG/2 ML INJ IV SCH (11:00)
[2020-08-28] MEDS: D5NS W/KCL 20 MEQ 20 MEQ/1,000 ML BAG IV SCH (11:00)
[2020-08-28] MEDS: POTASSIUM CHLORIDE 10 MEQ 10 MEQ/100 ML BAG IV SCH ×4 (11:01→17:36)
[2020-08-28] MEDS ORDERED: SODIUM CHLORIDE 0.9% 1000 ML 1,000 ML ONE (11:25)
--- NOTE | 2020-08-28 12:24 | Anesthesia Consultation ---
<DANIEL CORDOVA - Last Filed: 08/28/20 12:19> Anesthesia Consult and Med Hx Date of service: 08/28/20 - Airway Anesthetic Teeth Evaluation: Dentures (Upper and lower full plates) ROM Head & Neck: Adequate Mental/Hyoid Distance: Adequate Mallampati Class: Class I Intubation Access Assessment: Probably Good - Pulmonary Exam CTA: Yes - Pre-Operative Health Status ASA Pre-Surgery Classification: ASA3, Emergency Proposed Anesthetic Plan: General - Pulmonary Hx Smoking: Yes (Half a pack daily) Hx Asthma: No Hx Respiratory Symptoms: No SOB: No COPD: No Home Oxygen Therapy: No Hx Pneumonia: No Hx Sleep Apnea: No - Cardiovascular System Hx Hypertension: No Hx Coronary Artery Disease: No Hx Heart Attack/AMI: No Hx Angina: No Hx Percutaneous Transluminal Coronary Angioplasty (PTCA): No - Central Nervous System Hx Neuromuscular Disorder: No Hx Seizures: No CVA: No Hx Psychiatric Problems: No - Gastrointestinal Hx Ulcer: No Hx Gastroesophageal Reflux Disease: No - Endocrine Hx Renal Disease: No Hx Liver Disease: No Hx Insulin Dependent Diabetes: No Hx Non-Insulin Dependent Diabetes: No Hx Thyroid Disease: No - Hematic Hx Anemia: No - Other Systems Hx Alcohol Use: Yes (Sparingly) Hx Substance Use: No Hx Cancer: No Hx Obesity: Yes (43.9kg) - Additional Comments Anesthesia Medical History Comments: Patient denied previous anesthesia complications. <DEEPAK MAGALLANES - Last Filed: 08/28/20 15:30> Anesthesia Consult and Med Hx - Airway Anesthetic Teeth Evaluation: Dentures ROM Head & Neck: Adequate Mental/Hyoid Distance: Adequate Mallampati Class: Class I Intubation Access Assessment: Probably Good - Pre-Operative Health Status ASA Pre-Surgery Classification: ASA3 Proposed Anesthetic Plan: General - Pulmonary Hx Smoking: Yes - Additional Comments Anesthesia Medical History Comments: Diagnostic lap for SBO.
--- NOTE | 2020-08-28 12:27 | Anesthesia Day of Surgery ---
Anesthesia Day of Surgery - Day of Surgery Patient Examined: Yes Patient H&P Reviewed: Yes Patient is NPO: Yes Beta Blockers: No Cardiac Clearance: No Pulmonary Clearance: No Casper's Test: N/A
[2020-08-28] MEDS ORDERED: SODIUM CHLORIDE 0.9% IRR 1,500 ML BOTTLE IR ONE (14:23)
[2020-08-28] MEDS ORDERED: LIDOCAINE (1%) 10 MG/1 ML VIAL 20 ML MDV INFILTRATI ONE (14:24)
[2020-08-28] MEDS ORDERED: propofoL 200 MG/20 ML VIAL IV ONE (15:08)
[2020-08-28] MEDS ORDERED: LIDOCAINE MPF (2%) 20 MG/1 ML VIAL 5 ML ONE (15:08)
[2020-08-28] MEDS ORDERED: ROCURONIUM 50 MG/5 ML INJ IV ONE (15:08)
[2020-08-28] MEDS ORDERED: ePHEDrine SULFATE 50 MG/1 ML INJ ONE (15:08)
[2020-08-28] MEDS ORDERED: ONDANSETRON 4 MG/2 ML INJ ONE (15:08)
[2020-08-28] MEDS ORDERED: GLYCOPYRROLATE 0.4 MG/2 ML INJ ONE (15:08)
[2020-08-28] MEDS ORDERED: NEOSTIGMINE 10MG/10 ML INJ MDV ONE (15:08)
[2020-08-28] MEDS ORDERED: SUCCINYLCHOLINE CHLORIDE 200 MG/10 ML INJ MDV ONE (15:08)
[2020-08-28] MEDS ORDERED: PHENYLEPHRINE/NS 1,000 MCG/10 ML SYRINGE (OR USE) IV ONE (15:08)
[2020-08-28] MEDS ORDERED: dexAMETHasone 20 MG/5 ML VIAL ONE (15:08)
[2020-08-28] MEDS ORDERED: fentaNYL 100 MCG/2 ML INJ ONE ×2 (15:08→15:39)
[2020-08-28] MEDS ORDERED: ONDANSETRON 4 MG/2 ML INJ IV PRN (15:30)
[2020-08-28] MEDS ORDERED: HYDROmorphone 1 MG/1 ML INJ IV PRN (15:30)
[2020-08-28] MEDS ORDERED: SUGAMMADEX SODIUM 200 MG/2 ML VIAL IV ONE (16:10)
--- NOTE | 2020-08-28 16:32 | Post Operative Note ---
Pre-op diagnosis: small bowel obstruction Post-op diagnosis: same Findings: interloop band adhesion causing small bowel obstruction Procedure: diagnostic laparoscopy, lysis of adhesions Anesthesia: MCKENZIE, local Surgeon: FAM ACOSTA Pension Examiner: EMILIO ZAMORANO Estimated blood loss: minimal Pathology: none Condition: stable Disposition: PACU
--- NOTE | 2020-08-28 16:55 | Post Anesthesia Evaluation ---
- Post Anesthesia Evaluation Patient Participated: Yes Airway Patent: Yes Stable Respiratory Function: Yes Nausea/Vomiting: No Temp > 96.8F: Yes Pain Manageable: Yes Adequeate Hydration: Yes Anesthesia Complications: No Other Comments: Hypertensive in PACU but close to preop baseline. Pain well controlled, no complaint of nausea. OK for transfer back to surgical floor.
--- NOTE | 2020-08-28 17:51 | Operative Report ---
Operative Report Operative Report: Date: 08/28/20 16:29Initialization Date: 08/28/20 16:29 Pre-op diagnosis: small bowel obstruction Post-op diagnosis: same Findings: interloop band adhesion causing small bowel obstruction Procedure: diagnostic laparoscopy, lysis of adhesions Anesthesia: MCKENZIE, local Surgeon: FAM ACOSTA Director Public Policy: EMILIO ZAMORANO Estimated blood loss: minimal Pathology: none Condition: stable Disposition: Stable to PACU HPI and indication: Patient is a 60-year-old female who presented to the hospital with a small bowel obstruction and previous surgical history of a laparoscopic tubal ligation and open hysterectomy. The patient was stable and managed with bowel rest, IV fluids, pain medication, NG tube decompression. Patient was followed with serial x-rays and physical exams. After 72 hours of conservative management, the patient did not improve and therefore it was recommended that she undergo a diagnostic laparoscopy. All risk, benefits, alternatives to surgery discussed with the patient questions answered. Consent was obtained for diagnostic laparoscopy, possible exploratory laparotomy, possible bowel resection. Procedure in detail: The patient was identified in the preoperative area, taken back to the operating room and placed on the operating room table in supine position. After anesthesia was induced both arms were tucked and all bony prominences padded appropriately. A Forde catheter was sterilely placed by the circulating nurse. The abdomen was then prepped and draped in usual sterile fashion and a timeout performed. Local anesthetic was infiltrated into all skin incision sites. A selene incision was made in the left upper quadrant at Sahni's point through which a Veress needle was inserted. The Veress needle position was confirmed using the saline drop test and the abdomen insufflated to 15 mmHg without incident. Another incision was made in the left upper quadrant 2 cm inferior to the Veress needle through which a 5 mm Optiview trocar was placed. The abdomen was then inspected and there was no underlying injury to any of the abdominal structures. The Veress needle was identified and removed. Upon initial inspection of the abdomen there did appear to be marked distention of the small bowel along with ascitic fluid in the pelvis. An additional 5 mm supraumbilical and right upper quadrant trochars were placed under direct visualization. The patient was placed in Trendelenburg. The cecum was identified along with the terminal ileum. In the right lower quadrant there was decompressed normal-appearing small bowel. This was traced proximally to small bowel in the pelvis which was distended. Upon further inspection an interloop band adhesion was encountered and appeared to be the cause of the bowel obstruction. Proximal to this band adhesion, the bowel was markedly distended and distal to this the bowel was completely decompressed and unremarkable. Lysis of adhesions was performed using EndoShears. A adjacent interloop adhesion was also lysed using the EndoShears. The remainder of the bowel was examined to the ligament of Treitz and there were no other adhesions and all of the bowel was viable. The stomach was inspected and the NG tube was seen in the mid body. The ascites was aspirated using a suction surgical assistant. The bowel was placed back in normal anatomic position. The abdomen was then desufflated and the trochars removed. The skin incisions were approximated with 4-0 Monocryl subcuticular stitches and skin glue. At the end of the case all sponge, instrument, sharp counts were correct x2. The patient was awoken from anesthesia, the Forde catheter removed, and taken to PACU in stable condition.
[2020-08-28] MEDS: ENOXAPARIN 40 MG/0.4 ML INJ SUB-Q SCH (21:31)
[2020-08-29] MEDS: metroNIDAZOLE/NS 500 MG/100 ML 500 MG/100 ML BAG IV SCH ×3 (00:38→16:41)
[2020-08-29] MEDS: D5NS W/KCL 20 MEQ 20 MEQ/1,000 ML BAG IV SCH ×2 (00:38→10:56)
[2020-08-29] MEDS: MORPHINE 2 MG/1 ML INJ IV PRN ×2 (01:51→23:09)
[2020-08-29 05:09] LABS: Basophils % (Auto) 0.2 % (0.0-1.8); Hemoglobin 12.2 gm/dl (10.1-14.3); Lymphocytes # (Auto) 0.7 K/mm3 (1.2-5.4); Lymphocytes % (Auto) 13.1 % (13.4-35.0); Mean Corpuscular HGB Conc 34 % (30-34); Mean Corpuscular Volume 81 fl (79-97); Monocytes # (Auto) 0.5 K/mm3 (0.0-0.8); Monocytes % (Auto) 8.8 % (0.0-7.3); Platelet Count 179 K/mm3 (140-440); Red Blood Count 4.44 M/mm3 (3.65-5.03); Red Cell Distribution Width 13.3 % (13.2-15.2)
[2020-08-29 05:33] LABS: Alanine Aminotransferase 12 units/L (7-56); Albumin 3.2 g/dL (3.9-5); Blood Urea Nitrogen 9 mg/dL (7-17); Calcium 9.6 mg/dL (8.4-10.2); Hemolysis Index 2
[2020-08-29 05:36] LABS: BUN/Creatinine Ratio 15
--- NOTE | 2020-08-29 08:49 | Progress Note ---
Assessment and Plan Assessment and plan: #Small bowel obstruction Status post laparoscopy with lysis of adhesions Continue n.p.o. except for ice chips NG tube in place Repeat abdominal imaging today Surgery recommendations appreciated #DVT prophylaxis-Lovenox Full code History Interval history: 08/26. Patient seen and examined at bedside this morning No passing flatus She has NG tube in place N.p.o. except for ice chips Surgery on board Repeat imaging ordered for today 08/27. Had some vomiting yesterday Still not passing flatus Remains NPO and has NG tube in place. Surgery recs appreciated 08/28. Had bilious vomiting overnight. Still not passing gas. NG remains in place with dark green/bilious drainage. Repeat xray ordered this AM. Likely needs surgical intervention 08/29. Patient had laparoscopic procedure with lysis of adhesions on 08/28. Remained stable. Seen and examined at bedside this morning. Complains of nasal discharge. Denies any abdominal pain. Ordered repeat abdominal x-ray. Vitals remained stable Hospitalist Physical - Physical exam Narrative exam: VITAL SIGNS: Reviewed. GENERAL: Awake HEAD: No signs of head trauma. EYES: Pupils are equal. Extraocular motions intact. MOUTH: Oropharynx is normal. NECK: No adenopathy, no JVD. CHEST: Chest with diminished breath sounds bilaterally. No wheezes, rales, or rhonchi. CARDIAC: normal S1 and S2, without murmurs, gallops, or rubs. ABDOMEN: Soft, slight discomfort around the periumbilical area, bowel sounds slightly positive MUSCULOSKELETAL: No edema NEUROLOGIC EXAM: Alert and oriented x3. No focal neurologic deficits SKIN: No obvious lesions - Constitutional Vitals: Temp Pulse Resp BP Pulse Ox 97.6 F 64 19 150/89 95 08/29/20 07:19 08/29/20 07:19 08/29/20 07:19 08/29/20 07:19 08/29/20 07:19 HEART Score - HEART Score Risk factors: 1-2 risk factors Troponin: Troponin T < 0.010 ng/mL (0.00-0.029) 08/24/20 21:12 Troponin: < normal limit - Critical Actions Critical Actions: 0-3 pts:0.9-1.7%risk of adverse cardiac event.Candidate for discharge Results - Labs CBC & Chem 7: 08/29/20 03:42 08/29/20 03:42 Labs: Laboratory Last Values WBC 5.4 K/mm3 (4.5-11.0) 08/29/20 03:42 RBC 4.44 M/mm3 (3.65-5.03) 08/29/20 03:42 Hgb 12.2 gm/dl (10.1-14.3) 08/29/20 03:42 Hct 36.0 % (30.3-42.9) D 08/29/20 03:42 MCV 81 fl (79-97) 08/29/20 03:42 MCH 28 pg (28-32) 08/29/20 03:42 MCHC 34 % (30-34) 08/29/20 03:42 RDW 13.3 % (13.2-15.2) 08/29/20 03:42 Plt Count 179 K/mm3 (140-440) 08/29/20 03:42 Lymph % (Auto) 13.1 % (13.4-35.0) L 08/29/20 03:42 [place] % (Auto) 8.8 % (0.0-7.3) H 08/29/20 03:42 Eos % (Auto) 0.0 % (0.0-4.3) 08/29/20 03:42 Baso % (Auto) 0.2 % (0.0-1.8) 08/29/20 03:42 Lymph # (Auto) 0.7 K/mm3 (1.2-5.4) L 08/29/20 03:42 [place] # (Auto) 0.5 K/mm3 (0.0-0.8) 08/29/20 03:42 Eos # (Auto) 0.0 K/mm3 (0.0-0.4) 08/29/20 03:42 Baso # (Auto) 0.0 K/mm3 (0.0-0.1) 08/29/20 03:42 Seg Neutrophils % 77.9 % (40.0-70.0) H 08/29/20 03:42 Seg Neutrophils # 4.2 K/mm3 (1.8-7.7) 08/29/20 03:42 PT 12.8 Sec. (12.2-14.9) 08/24/20 21:12 INR 0.97 (0.87-1.13) 08/24/20 21:12 APTT 27.5 Sec. (24.2-36.6) 08/24/20 21:12 Sodium 135 mmol/L (137-145) L 08/29/20 03:42 Potassium 3.7 mmol/L (3.6-5.0) 08/29/20 03:42 Chloride 104.0 mmol/L (98-107) 08/29/20 03:42 Carbon Dioxide 26 mmol/L (22-30) 08/29/20 03:42 Anion Gap 9 mmol/L 08/29/20 03:42 BUN 9 mg/dL (7-17) 08/29/20 03:42 Creatinine 0.6 mg/dL (0.6-1.2) 08/29/20 03:42 Estimated GFR > 60 ml/min 08/29/20 03:42 BUN/Creatinine Ratio 15 % 08/29/20 03:42 Glucose 154 mg/dL (65-100) H 08/29/20 03:42 Lactic Acid 1.20 mmol/L (0.7-2.0) 08/24/20 21:12 Calcium 9.6 mg/dL (8.4-10.2) 08/29/20 03:42 Total Bilirubin 0.20 mg/dL (0.1-1.2) 08/29/20 03:42 AST 18 units/L (5-40) 08/29/20 03:42 ALT 12 units/L (7-56) 08/29/20 03:42 Alkaline Phosphatase 82 units/L (35-129) 08/29/20 03:42 Troponin T < 0.010 ng/mL (0.00-0.029) 08/24/20 21:12 Total Protein 5.8 g/dL (6.3-8.2) L D 08/29/20 03:42 Albumin 3.2 g/dL (3.9-5) L 08/29/20 03:42 Albumin/Globulin Ratio 1.2 % 08/29/20 03:42 Lipase 21 units/L (13-60) 08/24/20 21:12 Blood Type O POSITIVE 08/28/20 10:29 Antibody Screen Negative 08/28/20 10:29 Microbiology: Microbiology 08/24/20 21:13 Peripheral/Venous Blood Culture - Preliminary NO GROWTH AFTER 4 DAYS 02/25/21 21:29 Peripheral/Venous Blood Culture - Preliminary NO GROWTH AFTER 4 DAYS Forde/IV: Voiding Method Bedside Commode Active Medications - Current Medications Current Medications: Generic Name Dose Route Start Last Admin Trade Name Freq PRN Reason Stop Dose Admin Acetaminophen 650 mg 08/25/20 00:30 Acetaminophen 650 Mg Rect Supp [place] Q4H PRN Fever >101 Bisacodyl 10 mg 08/26/20 08:00 08/28/20 12:24 Bisacodyl 10 Mg Rect Supp [place] Not Given QDAY JENNIFER Enoxaparin Sodium 40 mg 08/26/20 22:00 08/28/20 21:31 Enoxaparin 40 Mg/0.4 Ml Inj SUB-Q 40 mg QDAY@2200 JENNIFER Administration Protocol Famotidine 20 mg 08/26/20 08:00 08/28/20 11:00 Famotidine 20 Mg/2 Ml Inj IV 20 mg QDAY JENNIFER Administration Levofloxacin/Dextrose 750 mg in 150 mls @ 100 mls/hr 08/25/20 01:00 08/29/20 01:50 Levaquin 750mg/150ml IV 100 mls/hr Q24H JENNIFER Administration Protocol Metronidazole 500 mg in 100 mls @ 100 mls/hr 08/25/20 01:00 08/29/20 00:38 Flagyl 500 Mg/100 Ml IV 100 mls/hr Q8H JENNIFER Administration Protocol Potassium Chloride/Dextrose/Sod Cl 20 meq in 1,000 mls @ 125 mls/hr 08/28/20 10:00 08/29/20 00:38 D5w/Ns W/Kcl 20meq IV 125 mls/hr DIRECT JENNIFER Administration Labetalol HCl 5 mg 08/28/20 16:28 Labetalol 20 Mg/4 Ml Inj IV Q10MIN PRN Hypertension Morphine Sulfate 2 mg 08/25/20 00:23 08/29/20 01:51 Morphine 2 Mg/1 Ml Inj IV 2 mg Q3H PRN Administration Pain, Moderate (4-6) Ondansetron HCl 4 mg 08/25/20 00:25 08/28/20 21:30 Ondansetron 4 Mg/2 Ml Inj IV 4 mg Q8H PRN Administration Nausea And Vomiting Phenol 1 spray 08/25/20 15:31 Phenol 1.4% 177 Ml Bottle MM PRN PRN Sore Throat
--- NOTE | 2020-08-29 09:34 | XRay Report ---
ABDOMEN 3 VIEW(S) INDICATION / CLINICAL INFORMATION: Revaluate SBO post op. COMPARISON: 08/27/2020 FINDINGS: TUBES / LINES: Nasogastric tube appears unchanged BOWEL GAS PATTERN/EXTRALUMINAL GAS: There is interval improvement in bowel gas pattern. Small bowel i s less distended. There is some gas in small bowel loops in the midabdomen. Bowel No pneumatosis or secondary signs of free air. ADDITIONAL FINDINGS: No focal infiltrate is seen. There is a small left pleural effusion. IMPRESSION: 1. There has been interval improvement in bowel gas pattern. There is decreased distention of small b owel study. Signer Name: Alfonzo Haskins MD Signed: 08/29/2020 9:29 AM Workstation Name: [id number]
[2020-08-29] MEDS: FAMOTIDINE 20 MG/2 ML INJ IV SCH (10:26)
--- NOTE | 2020-08-29 12:13 | Post Anesthesia Evaluation ---
- Post Anesthesia Evaluation Patient Participated: Yes Airway Patent: Yes Stable Respiratory Function: Yes Nausea/Vomiting: No (NG tube in situ) Temp > 96.8F: Yes Pain Manageable: Yes Adequeate Hydration: Yes Anesthesia Complications: No Block Receding Appropriately: Not Applicable Patient on Ventilator: No
--- NOTE | 2020-08-29 12:48 | Progress Note ---
Assessment and Plan 60 yo F s/p diagnostic laparoscopy, SANDRA, POD 1 Plan: 1. continue NGT to LIWS 2. maintenance IVF 3. OOB/ambulate 4. DVT ppx 5. pepcid IV daily 6. repeat BMP in am and replace lytes as needed 7. prn pain control 8. await bowel function 9. Does not need routine abdominal imaging post op. Thank you, please call with questions. Subjective Date of service: 08/29/20 Narrative: Pt seen and examined. Denies pain. NO n/v. No f/c. No flatus or BM. Ambulating on her own. Objective Vital Signs - 12hr 08/29/20 08/29/20 07:19 11:50 Temperature 97.6 F 98 F Pulse Rate 64 68 Respiratory 19 18 Rate Blood Pressure 150/89 Blood Pressure 155/82 [Left] O2 Sat by Pulse 95 96 Oximetry - General physical appearance Narrative Exam: Gen: AAOIx3. NAD ENT: NGT aspirate now gastric appearing CV: S1, S2+ Resp: even and unlabored Abd: soft, mildly distended, NT. Incisions c/d/i Ext: no c/c/e - Labs 08/29/20 03:42 08/29/20 03:42 Diabetes panel 08/29/20 Range/Units 03:42 Sodium 135 L (137-145) mmol/L Potassium 3.7 (3.6-5.0) mmol/L Chloride 104.0 (98-107) mmol/L Carbon Dioxide 26 (22-30) mmol/L BUN 9 (7-17) mg/dL Creatinine 0.6 (0.6-1.2) mg/dL Glucose 154 H (65-100) mg/dL Calcium 9.6 (8.4-10.2) mg/dL AST 18 (5-40) units/L ALT 12 (7-56) units/L Alkaline Phosphatase 82 (35-129) units/L Total Protein 5.8 L D (6.3-8.2) g/dL Albumin 3.2 L (3.9-5) g/dL Calcium panel 08/29/20 Range/Units 03:42 Calcium 9.6 (8.4-10.2) mg/dL Albumin 3.2 L (3.9-5) g/dL Pituitary panel 08/29/20 Range/Units 03:42 Sodium 135 L (137-145) mmol/L Potassium 3.7 (3.6-5.0) mmol/L Chloride 104.0 (98-107) mmol/L Carbon Dioxide 26 (22-30) mmol/L BUN 9 (7-17) mg/dL Creatinine 0.6 (0.6-1.2) mg/dL Glucose 154 H (65-100) mg/dL Calcium 9.6 (8.4-10.2) mg/dL Adrenal panel 08/29/20 Range/Units 03:42 Sodium 135 L (137-145) mmol/L Potassium 3.7 (3.6-5.0) mmol/L Chloride 104.0 (98-107) mmol/L Carbon Dioxide 26 (22-30) mmol/L BUN 9 (7-17) mg/dL Creatinine 0.6 (0.6-1.2) mg/dL Glucose 154 H (65-100) mg/dL Calcium 9.6 (8.4-10.2) mg/dL Total Bilirubin 0.20 (0.1-1.2) mg/dL AST 18 (5-40) units/L ALT 12 (7-56) units/L Alkaline Phosphatase 82 (35-129) units/L Total Protein 5.8 L D (6.3-8.2) g/dL Albumin 3.2 L (3.9-5) g/dL
[2020-08-29] MEDS: ENOXAPARIN 40 MG/0.4 ML INJ SUB-Q SCH (21:29)
[2020-08-29] MEDS: ONDANSETRON 4 MG/2 ML INJ IV PRN (23:09)
[2020-08-30] MEDS: metroNIDAZOLE/NS 500 MG/100 ML 500 MG/100 ML BAG IV SCH (00:48)
[2020-08-30 04:15] LABS: Basophils % (Auto) 0.8 % (0.0-1.8); Hematocrit 35.7 % (30.3-42.9); Hemoglobin 12.4 gm/dl (10.1-14.3); Lymphocytes # (Auto) 1.8 K/mm3 (1.2-5.4); Mean Corpuscular HGB Conc 35 % (30-34); Mean Corpuscular Volume 82 fl (79-97); Monocytes # (Auto) 0.4 K/mm3 (0.0-0.8); Monocytes % (Auto) 7.7 % (0.0-7.3); Platelet Count 224 K/mm3 (140-440); Red Blood Count 4.37 M/mm3 (3.65-5.03); Red Cell Distribution Width 13.2 % (13.2-15.2)
[2020-08-30 04:47] LABS: BUN/Creatinine Ratio TNR; Blood Urea Nitrogen TNR mg/dL (7-17)
[2020-08-30 04:48] LABS: Alanine Aminotransferase TNR units/L (7-56); Albumin TNR g/dL (3.9-5); Calcium TNR mg/dL (8.4-10.2); Hemolysis Index TNR
[2020-08-30] MEDS: D5NS W/KCL 20 MEQ 20 MEQ/1,000 ML BAG IV SCH ×2 (05:12→20:38)
[2020-08-30 06:39] LABS: Alanine Aminotransferase 15 units/L (7-56); Albumin 3.1 g/dL (3.9-5); BUN/Creatinine Ratio 10; Blood Urea Nitrogen 7 mg/dL (7-17); Calcium 9.1 mg/dL (8.4-10.2); Hemolysis Index 1
[2020-08-30] MEDS: FAMOTIDINE 20 MG/2 ML INJ IV SCH (10:12)
--- NOTE | 2020-08-30 10:17 | Progress Note ---
Assessment and Plan Assessment and plan: #Small bowel obstruction Status post laparoscopy with lysis of adhesions Continue n.p.o. except for ice chips NG tube in place Surgery recommendations appreciated #DVT prophylaxis-Lovenox Full code History Interval history: 08/26. Patient seen and examined at bedside this morning No passing flatus She has NG tube in place N.p.o. except for ice chips Surgery on board Repeat imaging ordered for today 08/27. Had some vomiting yesterday Still not passing flatus Remains NPO and has NG tube in place. Surgery recs appreciated 08/28. Had bilious vomiting overnight. Still not passing gas. NG remains in place with dark green/bilious drainage. Repeat xray ordered this AM. Likely needs surgical intervention 08/29. Patient had laparoscopic procedure with lysis of adhesions on 08/28. Remained stable. Seen and examined at bedside this morning. Complains of nasal discharge. Denies any abdominal pain. Ordered repeat abdominal x-ray. Vitals remained stable 08/30. Feels ok this AM. Improved bowel sounds. Abdominal xray shows slight improvement in SBO. Surgery to see. Vitals remain stable. Hospitalist Physical - Physical exam Narrative exam: VITAL SIGNS: Reviewed. GENERAL: Awake HEAD: No signs of head trauma. EYES: Pupils are equal. Extraocular motions intact. MOUTH: Oropharynx is normal. NECK: No adenopathy, no JVD. CHEST: Chest with diminished breath sounds bilaterally. No wheezes, rales, or rhonchi. CARDIAC: normal S1 and S2, without murmurs, gallops, or rubs. ABDOMEN: Soft, slight discomfort around the periumbilical area, bowel sounds slightly positive MUSCULOSKELETAL: No edema NEUROLOGIC EXAM: Alert and oriented x3. No focal neurologic deficits SKIN: No obvious lesions - Constitutional Vitals: Temp Pulse Resp BP Pulse Ox 98.2 F 61 18 130/72 96 08/30/20 05:37 08/30/20 05:37 08/30/20 05:37 08/30/20 05:37 08/30/20 05:37 HEART Score - HEART Score Risk factors: 1-2 risk factors Troponin: Troponin T < 0.010 ng/mL (0.00-0.029) 08/24/20 21:12 Troponin: < normal limit - Critical Actions Critical Actions: 0-3 pts:0.9-1.7%risk of adverse cardiac event.Candidate for discharge Results - Labs CBC & Chem 7: 08/30/20 03:17 08/30/20 05:48 Labs: Laboratory Last Values WBC 4.7 K/mm3 (4.5-11.0) 08/30/20 03:17 RBC 4.37 M/mm3 (3.65-5.03) 08/30/20 03:17 Hgb 12.4 gm/dl (10.1-14.3) 08/30/20 03:17 Hct 35.7 % (30.3-42.9) 08/30/20 03:17 MCV 82 fl (79-97) 08/30/20 03:17 MCH 28 pg (28-32) 08/30/20 03:17 MCHC 35 % (30-34) H 08/30/20 03:17 RDW 13.2 % (13.2-15.2) 08/30/20 03:17 Plt Count 224 K/mm3 (140-440) 08/30/20 03:17 Lymph % (Auto) 39.0 % (13.4-35.0) H 08/30/20 03:17 [place] % (Auto) 7.7 % (0.0-7.3) H 08/30/20 03:17 Eos % (Auto) 1.0 % (0.0-4.3) 08/30/20 03:17 Baso % (Auto) 0.8 % (0.0-1.8) 08/30/20 03:17 Lymph # (Auto) 1.8 K/mm3 (1.2-5.4) 08/30/20 03:17 [place] # (Auto) 0.4 K/mm3 (0.0-0.8) 08/30/20 03:17 Eos # (Auto) 0.0 K/mm3 (0.0-0.4) 08/30/20 03:17 Baso # (Auto) 0.0 K/mm3 (0.0-0.1) 08/30/20 03:17 Seg Neutrophils % 51.5 % (40.0-70.0) 08/30/20 03:17 Seg Neutrophils # 2.4 K/mm3 (1.8-7.7) 08/30/20 03:17 PT 12.8 Sec. (12.2-14.9) 08/24/20 21:12 INR 0.97 (0.87-1.13) 08/24/20 21:12 APTT 27.5 Sec. (24.2-36.6) 08/24/20 21:12 Sodium 141 mmol/L (137-145) 08/30/20 05:48 Potassium 3.6 mmol/L (3.6-5.0) 08/30/20 05:48 Chloride 107.7 mmol/L (98-107) H 08/30/20 05:48 Carbon Dioxide 27 mmol/L (22-30) 08/30/20 05:48 Anion Gap 10 mmol/L 08/30/20 05:48 BUN 7 mg/dL (7-17) 08/30/20 05:48 Creatinine 0.7 mg/dL (0.6-1.2) 08/30/20 05:48 Estimated GFR > 60 ml/min 08/30/20 05:48 BUN/Creatinine Ratio 10 % 08/30/20 05:48 Glucose 121 mg/dL (65-100) H 08/30/20 05:48 Lactic Acid 1.20 mmol/L (0.7-2.0) 08/24/20 21:12 Calcium 9.1 mg/dL (8.4-10.2) 08/30/20 05:48 Total Bilirubin 0.30 mg/dL (0.1-1.2) 08/30/20 05:48 AST 19 units/L (5-40) 08/30/20 05:48 ALT 15 units/L (7-56) 08/30/20 05:48 Alkaline Phosphatase 79 units/L (35-129) 08/30/20 05:48 Troponin T < 0.010 ng/mL (0.00-0.029) 08/24/20 21:12 Total Protein 5.7 g/dL (6.3-8.2) L 08/30/20 05:48 Albumin 3.1 g/dL (3.9-5) L 08/30/20 05:48 Albumin/Globulin Ratio 1.2 % 08/30/20 05:48 Lipase 21 units/L (13-60) 08/24/20 21:12 Blood Type O POSITIVE 08/28/20 10:29 Antibody Screen Negative 08/28/20 10:29 Microbiology: Microbiology 08/24/20 21:13 Peripheral/Venous Blood Culture - Final NO GROWTH AFTER 5 DAYS 08/24/20 21:29 Peripheral/Venous Blood Culture - Final NO GROWTH AFTER 5 DAYS Forde/IV: Voiding Method Bedside Commode Active Medications - Current Medications Current Medications: Generic Name Dose Route Start Last Admin Trade Name Freq PRN Reason Stop Dose Admin Acetaminophen 650 mg 08/25/20 00:30 Acetaminophen 650 Mg Rect Supp [place] Q4H PRN Fever >101 Enoxaparin Sodium 40 mg 08/26/20 22:00 08/29/20 21:29 Enoxaparin 40 Mg/0.4 Ml Inj SUB-Q 40 mg QDAY@2200 JENNIFER Administration Protocol Famotidine 20 mg 08/26/20 08:00 08/29/20 10:26 Famotidine 20 Mg/2 Ml Inj IV 20 mg QDAY JENNIFER Administration Potassium Chloride/Dextrose/Sod Cl 20 meq in 1,000 mls @ 125 mls/hr 08/28/20 10:00 08/30/20 05:12 D5w/Ns W/Kcl 20meq IV 125 mls/hr DIRECT JENNIFER Administration Labetalol HCl 5 mg 08/28/20 16:28 Labetalol 20 Mg/4 Ml Inj IV Q10MIN PRN Hypertension Morphine Sulfate 2 mg 08/25/20 00:23 08/29/20 23:09 Morphine 2 Mg/1 Ml Inj IV 2 mg Q3H PRN Administration Pain, Moderate (4-6) Ondansetron HCl 4 mg 08/25/20 00:25 08/29/20 23:09 Ondansetron 4 Mg/2 Ml Inj IV 4 mg Q8H PRN Administration Nausea And Vomiting Phenol 1 spray 08/25/20 15:31 Phenol 1.4% 177 Ml Bottle MM PRN PRN Sore Throat
--- NOTE | 2020-08-30 13:12 | Progress Note ---
Assessment and Plan 60 yo F s/p diagnostic laparoscopy, SANDRA, POD 2 NGT output gastric - 400cc/24hr Pt stable. Passed 4 hours clamp trial that was initiated this am. Plan: 1. dc NGT 2. start CLD -> adv to FLD in am 3. maintenance IVF 4. OOB/ambulate 5. DVT ppx 6. pepcid IV daily 7. prn pain control - will change to PO if getachew clear diet 8. dc abx DC planning for tomorrow. Thank you, please call with questions. Subjective Date of service: 08/30/20 Narrative: Pt seen and examined. No complaints. Passing flatus. +small BMx2. No f/c. Ambulating. Objective Vital Signs - 12hr 08/30/20 05:37 Temperature 98.2 F Pulse Rate 61 Respiratory 18 Rate Blood Pressure 130/72 O2 Sat by Pulse 96 Oximetry - General physical appearance Narrative Exam: Gen: AAOIx3. NAD ENT: NGT aspirate gastric appearing - brown, clear CV: S1, S2+ Resp: even and unlabored Abd: soft, mildly distended, NT. Incisions c/d/i Ext: no c/c/e - Labs 08/30/20 03:17 08/30/20 05:48 Diabetes panel 08/30/20 08/30/20 Range/Units 03:17 05:48 Sodium TNR 141 Potassium TNR 3.6 Chloride TNR 107.7 H Carbon Dioxide TNR 27 BUN TNR 7 Creatinine TNR 0.7 Glucose TNR 121 H Calcium TNR 9.1 AST TNR 19 ALT TNR 15 Alkaline Phosphatase TNR 79 Total Protein TNR 5.7 L Albumin TNR 3.1 L Calcium panel 08/30/20 08/30/20 Range/Units 03:17 05:48 Calcium TNR 9.1 Albumin TNR 3.1 L Pituitary panel 08/30/20 08/30/20 Range/Units 03:17 05:48 Sodium TNR 141 Potassium TNR 3.6 Chloride TNR 107.7 H Carbon Dioxide TNR 27 BUN TNR 7 Creatinine TNR 0.7 Glucose TNR 121 H Calcium TNR 9.1 Adrenal panel 08/30/20 08/30/20 Range/Units 03:17 05:48 Sodium TNR 141 Potassium TNR 3.6 Chloride TNR 107.7 H Carbon Dioxide TNR 27 BUN TNR 7 Creatinine TNR 0.7 Glucose TNR 121 H Calcium TNR 9.1 Total Bilirubin TNR 0.30 AST TNR 19 ALT TNR 15 Alkaline Phosphatase TNR 79 Total Protein TNR 5.7 L Albumin TNR 3.1 L
[2020-08-30] MEDS: ENOXAPARIN 40 MG/0.4 ML INJ SUB-Q SCH (21:50)
[2020-08-31] MEDS: D5NS W/KCL 20 MEQ 20 MEQ/1,000 ML BAG IV SCH (04:15)
[2020-08-31 08:58] VITALS: BP 133/82
--- NOTE | 2020-08-31 09:34 | Discharge Summary ---
<FAM ACOSTA - Last Filed: 08/31/20 10:49> Providers - Providers Date of Admission: 08/24/20 23:07 Attending physician: CRISTY SAWANT 08/24/20 22:52 Consult to Physician [CONS] Routine Comment: Consulting Provider: FAM ACOSTA Physician Instructions: Reason For Exam: Small Bowel Obstruction 08/30/20 10:35 Physical Therapy Evaluation and Treat [CONS] Routine Comment: Reason For Exam: Ambulate patient Primary care physician: NEUROPSYCHOLOGY SERVICE DIRECTOR Hospitalization Condition: Serious Disposition: DC-01 TO HOME OR SELFCARE Exam - Constitutional Vitals: Temp Pulse Resp BP Pulse Ox 98.2 F 66 18 133/82 98 08/31/20 08:32 08/31/20 08:32 08/31/20 08:32 08/31/20 08:32 08/31/20 08:32 Plan Activity: no restrictions Diet: other (Stay on full liquid diet - oatmeal, pudding, grit etc and slowly advance to Soft diet - boiled vegetables, chicken, fish, mashed potatoes etc.) Wound: open to air (May shower, pat incision dry) Follow up with: PRIMARY CARE, [Primary Care Provider] - 7 Days FAM ACOSTA DO [Staff Physician] - 14 Days <CRISTY SAWANT - Last Filed: 08/31/20 16:34> Providers - Providers Date of Admission: 08/24/20 23:07 Date of discharge: 08/31/20 Attending physician: CRISTY SAWANT 08/24/20 22:52 Consult to Physician [CONS] Routine Comment: Consulting Provider: FAM ACOSTA Physician Instructions: Reason For Exam: Small Bowel Obstruction 08/30/20 10:35 Physical Therapy Evaluation and Treat [CONS] Routine Comment: Reason For Exam: Ambulate patient Primary care physician: NEUROPSYCHOLOGY SERVICE DIRECTOR Hospitalization Hospital course: 60-year-old female who started having epigastric abdominal pain on 04/23/2021 and states she thought it was gas and took some mixture of warm water and ezio but did not get any relief, patient states she tried to move her bowel by sitting on the commode for some time of felt like she was going to pass out. There was history of associated nausea and vomiting, there was no history of fever or chills and patient stated she moved her bowel prior to coming to the emergency room and did not have any feeling of constipation. In the ER, patient had abdominal imaging results consistent with small bowel obstruction. Patient was made n.p.o. NG tube was placed and surgery was consulted. 08/26. Patient seen and examined at bedside this morning. No passing flatus. She has an NG tube in place. Remains n.p.o. Surgery on board. Repeat abdominal x-ray shows persistent SBO 08/27. Patient still has abdominal discomfort. Had episode of vomiting yesterday. No able to pass flatus. Remains n.p.o. and has NG tube in place connected to suction. 08/28. Had bilious vomiting overnight. Still not passing gas. NG remains in place with dark green/bilious drainage. Repeat xray ordered this AM. Likely needs surgical intervention 08/29. Patient had laparoscopic procedure with lysis of adhesions on 08/28. Rem ained stable. Seen and examined at bedside this morning. Complains of nasal discharge. Denies any abdominal pain. Ordered repeat abdominal x-ray. Vitals remained stable 08/30. Feels ok this AM. Improved bowel sounds. Abdominal xray shows slight improvement in SBO. Surgery to see. Vitals remain stable. 08/31. Feels great this AM. Having BMs. Denies any abdominal pain or vomiting. She is tolerating p.o. Patient medically stable for discharge later today. Surgery to see. Remains hemodynamically stable Time spent for discharge: 40 mins - Discharge Diagnoses (1) Intractable abdominal pain Status: Resolved (2) Small bowel obstruction Status: Resolved (3) Tobacco use Status: Acute Core Measure Documentation - Palliative Care Palliative Care/ Comfort Measures: Not Applicable - Core Measures Any of the following diagnoses?: none Exam - Physical Exam Narrative exam: VITAL SIGNS: Reviewed. GENERAL: Awake HEAD: No signs of head trauma. EYES: Pupils are equal. Extraocular motions intact. MOUTH: Oropharynx is normal. NECK: No adenopathy, no JVD. CHEST: Chest with diminished breath sounds bilaterally. No wheezes, rales, or rhonchi. CARDIAC: normal S1 and S2, without murmurs, gallops, or rubs. ABDOMEN: Soft, nontender, bowel sounds positive MUSCULOSKELETAL: No edema NEUROLOGIC EXAM: Alert and oriented x3. No focal neurologic deficits SKIN: No obvious lesions - Constitutional Vitals: Temp Pulse Resp BP Pulse Ox 98.2 F 66 18 133/82 98 08/31/20 08:32 08/31/20 08:32 08/31/20 08:32 08/31/20 08:32 08/31/20 08:32
--- NOTE | 2020-08-31 11:57 | Progress Note ---
Assessment and Plan 60 yo F s/p diagnostic laparoscopy, SANDRA, POD 3 Plan: 1. FLD - pt instructed to adv to soft diet over next few days. 2. OOB/ambulate 3. OK to dc from surgery standpoint. Verbal and written instructions provided. May follow up in surgery clinic in 2 weeks. D/W Dr. Savage Thank you, please call with questions. Subjective Date of service: 08/31/20 Narrative: Pt seen and examined. No complaints. Denies pain. Tolerating FLD. No n/v. Objective Vital Signs - 12hr 08/31/20 08/31/20 08/31/20 00:14 05:32 08:32 Temperature 98.9 F 98.5 F 98.2 F Pulse Rate 56 L 56 L 66 Respiratory 18 18 18 Rate Blood Pressure 126/60 132/70 133/82 O2 Sat by Pulse 92 94 98 Oximetry - General physical appearance Narrative Exam: Gen: AAOx3. NAD CV: S1, S2+ Resp: even and unlabored Ext: no c/c/e - Labs 08/30/20 03:17 08/30/20 05:48
== END 2020-08-31 15:30 | disposition home or self-care (01) | DRG 336 ==
LOC: ED 20:46 → 3B 23:07
PROVIDERS: ADMIT Internal Medicine; ATTEND Internal Medicine
PROC: 0DNB4ZZ Release Ileum, Percutaneous Endoscopic Approach (ICD-10-PCS; principal; 2020-08-28)
DX: K56.609 Unspecified intestinal obstruction, unspecified as to partial versus complete obstruction (principal); Z68.41 Body mass index [BMI] 40.0-44.9, adult; M19.90 Unspecified osteoarthritis, unspecified site; Z90.710 Acquired absence of both cervix and uterus; Z79.899 Other long term (current) drug therapy; Z98.51 Tubal ligation status; Z79.891 Long term (current) use of opiate analgesic; Z79.01 Long term (current) use of anticoagulants; Z79.2 Long term (current) use of antibiotics; F17.210 Nicotine dependence, cigarettes, uncomplicated; E66.9 Obesity, unspecified
CPT/HCPCS: 36415; 70450; 74018; 74022; 74177; 80048; 80053; 82140; 83690; 84484; 85025; 85610; 85730; 86850; 86900; 86901; 87040; 93005; 96361; 96365; 96366; 96367; 96375; 96376; G0378; J0330; J1100; J1650; J1956; J2270; J2370; J2405; J2704; J2710; J3010; J3480; J7030; J7042; Q9967